=== PATIENT | female | born 1980 | race Caucasian/White ===

== ENCOUNTER 2019-09-25 08:03 | Emergency (ER) | payer SELFPAY ==
[2019-09-25 08:09] VITALS: BP 132/94; PULSE 90; TEMP 36.8; O2SAT 100
--- NOTE | 2019-09-25 08:30 | DI.RAD_ITS ---
EXAM: XR PORTABLE CHEST AP CLINICAL HISTORY: cough, lll crackles. TECHNIQUE: 2D digital imaging was performed. COMPARISON: No exams were available for comparison FINDINGS: LUNGS: Clear. No pleural abnormality seen. HEART: Normal. MEDIASTINUM: Normal. OTHER FINDINGS: None. IMPRESSION: No acute pulmonary findings. DATA REPOSITORY: RADIATION DOSE DELIVERED:
--- NOTE | 2019-09-25 08:34 | ED.GENADUL_ITS ---
Discharge Plan Disposition Patient Disposition: HOME Condition: Stable Discharge Details Chief Complaint: RespSymp Clinical Impression: Cough Primary Care Provider: None,None ED Provider: Shawn Perera Home Meds and New Rx's Prescriptions: New azithromycin 250 mg tablet See Rx Instructions .ROUTE .COMPLEX Qty: 6 RF: 0 Continued ibuprofen 600 MG tablet 600 mg PO QID PRN PRN (Reason: Pain) Qty: 30 RF: 0 Discharge Instructions Instructions: Acute Cough (ED) Additional Instructions: Azithromycin as directed. Silf-fck-hxhhoey medications such as Tylenol, Motrin, Delsym, etc. for symptomatic control. Plenty of fluids avoid dehydration. Please watch for new or worsening symptoms and return to the ER for any con cerns. Stand Alone Forms: POSITIVE COVID-19/TO BE TESTED Medical Decision Making 39-year-old female presents with a worsening productive cough over the past 2 weeks, low-grade fever, chest wall pain and shortness of breath with coughing. PERC criteria negative, will not obtain d-dimer. She appears well, nontoxic. I do not believe that hematologic laboratory values will be of use. Lungs are clear to auscultation, she is afebrile, O2 sat 100% on room air. No indication for breathing therapy. Will obtain x-ray to rule out pneumonia and obtain a COV ID swab as the tent testing is closed for the next 2 days. Chest x-ray read by me and confirmed by radiology as negative. COVID pending Discussed x-ray findings with patient. Discussed quarantining with patient. Given her symptoms are worsening, subjective fever, she is a smoker, we discussed antibiotic therapy. Will provide a Z-Nir. Patient comfortable this plan and has no additional questions or concerns. Medical Records Medical records reviewed: Yes I reviewed the patient's medical records. Imaging Data Radiologic Study: Attestation: I personally reviewed and interpreted this imaging study as follows: Imaging: X-Ray Radiologist's impression: Chest x-ray read by radiology as negative HPI General Mode of arrival: ambulatory . Date/Time Provider Initiated Documentation: 09/25/19 08:15 . Limitations to Documentation: no limitations . Information obtained by: patient . HPI Narrative: This is a 39-year-old female who reports a history of hepatitis C, currently smokes half a pack of cigarettes daily, presenting for a productive cough, low-grade cough, and chest wall pain when coughing. She reports this has been going on for approximately 2 weeks. She travels around [place] for work but has not left the state, denies any obvious sick contacts. She denies headache, neck pain, abdominal pain, nausea, vomiting, pain or swelling in her legs, history of DVT or PE. Denies any oral contraceptive. Patient reports that when she gets into a coughing fit she does feel short of breath otherwise denies shortness of breath at baseline. Related Data Home Medications Medication Instructions Recorded Confirmed ibuprofen 600 mg PO QID PRN PRN #30 tablet 01/28/14 06/19/17 azithromycin See Rx Instructions .ROUTE 09/25/19 .COMPLEX #6 tab Previous Rx's Medication Instructions Recorded ibuprofen 600 mg PO QID PRN PRN #30 tablet 01/28/14 azithromycin See Rx Instructions .ROUTE 09/25/19 .COMPLEX #6 tab Allergies Allergy/AdvReac Type Severity Reaction Status Date / Time aspirin Allergy Severe Anaphylaxsi Unverified 09/25/19 08:15 s General Stated Complaint: RespSymp MAIKEL: 3 Review of Systems Constitutional Constitutional: Denies fatigue, Denies fever(s) and Denies headache(s) Eyes Eyes: Denies eye discharge ENT Ears, Nose, Mouth, and Throat: Denies otalgia, Denies headache(s) and Denies sore throat Cardiovascular Cardiovascular: Denies chest pain and Reports dyspnea Respiratory Respiratory: Reports cough, Denies hemoptysis, Reports dyspnea and Denies wheezing Gastrointestinal Gastrointestinal: Denies abdominal pain, Denies nausea and Denies vomiting Musculoskeletal Musculoskeletal: Denies myalgias Integumentary/Breasts Skin/Breast: Denies rash Neurologic Neurologic: Denies headache(s) Endocrine Endocrine: Denies fatigue Allergic/Immunologic Allergic/Immunologic: Denies wheezing [facility] Medical History Foot pain, right s/p Fx R lateral malleolus. 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 LFTs and viral RNA pending. Tobacco use Surgical History Arthroplasty of knee L knee section (~2001) Ligation of fallopian tube Repair, ACL (~1997) Tonsillectomy and adenoidectomy Social History Smoking/Tobacco Use Status: Current every day Tobacco Type: cigarettes Alcohol Intake: never Drug use: Never Substance use type: does not use Do you feel safe at home: Yes Do you feel safe in your relationship?: Yes Exam Const General: cooperative, healthy appearing, comfortable and no acute distress Orientation: alert, awake and oriented x3 HENMT Head: normal to inspection, normocephalic and atraumatic Ears: external ears normal, TM's normal bilaterally and EAC's normal Mouth: moist mucous membranes Throat: posterior oropharynx normal Eyes Conjunctivae: conjunctivae normal Sclera: sclerae normal Neck Neck: normal visual inspection, full ROM, meningismus present, trachea midline and supple Resp Effort & Inspection: normal respiratory effort, able to speak in complete sentences and cough Quality of cough: dry Auscultation: diminished lung sounds bilaterally Cardio Rate: regular rate Rhythm: regular rhythm Skin General skin exam: no rashes or lesions noted Neuro General: patient alert, patient awake, moves all extremities and no focal motor deficits Sensory Exam: no sensory deficits noted Extrem General: normal to inspection, full ROM, capillary refill normal, no pedal edema and no calf tenderness Psych Appearance: grossly normal Mental Status: mental status grossly normal Course Vital Signs Vital signs: Vital Signs Temperature 36.8 C 09/25/19 08:09 Pulse 90 09/25/19 08:09 Blood Pressure 132/94 H 09/25/19 08:09 Pulse Oximetry 100 09/25/19 08:09 Temperature 36.8 C 09/25/19 08:09 Pulse 90 09/25/19 08:09 Respiratory Effort Non-Labored 09/25/19 08:15 Respiratory Depth Normal 09/25/19 08:15 Blood Pressure 132/94 H 09/25/19 08:09 Blood Pressure Position Sitting 09/25/19 08:09 Pulse Oximetry 100 09/25/19 08:09 Oxygen Delivery Method Room Air 09/25/19 08:09 Oxygen Flow Rate 0 09/25/19 08:09 Pain Level 9 09/25/19 08:09
[2019-09-27 04:46] LABS: SARS-CoV-2 RNA Undetected (Undetected); SARS-CoV-2 Specimen Source Nasopharynx
--- NOTE | 2019-10-02 09:52 | NUR.NOTE ---
patient called asking about covid test results. advised patient that results were negative for covid.
== END 2019-09-25 09:25 | disposition home or self-care (01) ==
PROVIDERS: Emergency Provider Physician Assistant
DX: R05 Cough (principal); R50.9 Fever, unspecified; R07.81 Pleurodynia; Z11.59 Encounter for screening for other viral diseases; F17.210 Nicotine dependence, cigarettes, uncomplicated
CPT/HCPCS: 99283; U0003; 71045

== ENCOUNTER 2021-11-10 16:26 | Outpatient (REF) | payer MEDICAID, SELFPAY ==
[2021-11-10 16:29] LABS: Lithium 0.7 mmol/l (0.6-1.2)
== END 2021-11-10 16:27 | disposition home or self-care (01) ==
LOC: NCHCN 16:26
PROVIDERS: Visit Provider Nurse Practitioner Family
DX: Z79.899 Other long term (current) drug therapy (principal); Z51.81 Encounter for therapeutic drug level monitoring
CPT/HCPCS: 80178

== ENCOUNTER 2021-12-02 15:46 | Outpatient (REF) | payer MEDICAID, SELFPAY ==
[2021-12-02 18:32] LABS: ALT 21 U/L (14-59); AST 19 U/L (15-37); Alkaline Phosphatase 98 U/L (46-116); Anion Gap 8.9 mmol/L (3-11); BUN 13 mg/dL (7-18); Bilirubin, Total 0.7 mg/dL (0.2-1.0); CO2 25.1 mmol/L (21.0-32.0); CREATININE 0.7 mg/dL (0.55-1.02); Calcium 9.5 mg/dL (8.5-10.1); Chloride 103 mmol/L (98-107); Estimated GFR 111.36 (mL/min/1.73m2); Glucose 75 mg/dL (74-106); Potassium 4.2 mmol/L (3.5-5.1); Sodium 137 mmol/L (136-145); Total Protein 7.6 g/dL (6.4-8.2)
== END 2021-12-02 15:47 | disposition home or self-care (01) ==
LOC: LBN 15:46
PROVIDERS: Visit Provider Registered Nurse
DX: Z79.899 Other long term (current) drug therapy (principal)
CPT/HCPCS: 80053; 80178

== ENCOUNTER 2021-12-10 14:15 | Outpatient (REF) | payer MEDICAID, SELFPAY ==
[2021-12-10 11:00] LABS: Lithium 0.8 mmol/l (0.6-1.2)
[2021-12-10 11:06] LABS: ALT 19 U/L (14-59); AST 17 U/L (15-37); Albumin 4.1 g/dL (3.4-5.0); Alkaline Phosphatase 89 U/L (46-116); Anion Gap 11.2 mmol/L (3-11); BUN 14 mg/dL (7-18); Bilirubin, Total 1.4 mg/dL (0.2-1.0); CO2 23.8 mmol/L (21.0-32.0); CREATININE 0.7 mg/dL (0.55-1.02); Calcium 9.9 mg/dL (8.5-10.1); Chloride 104 mmol/L (98-107); Estimated GFR 111.36 (mL/min/1.73m2); Glucose 84 mg/dL (74-106); Potassium 4.3 mmol/L (3.5-5.1); Sodium 139 mmol/L (136-145); Total Protein 7.4 g/dL (6.4-8.2)
== END 2021-12-10 14:16 | disposition home or self-care (01) ==
LOC: NCHCN 14:15
PROVIDERS: Visit Provider Nurse Practitioner Family
DX: Z79.899 Other long term (current) drug therapy (principal)
CPT/HCPCS: 80053; 80178

== ENCOUNTER 2021-12-24 12:17 | Outpatient (CLI) | payer MEDICAID, SELFPAY ==
[2021-12-24 11:47] LABS: ALT 21 U/L (14-59); AST 16 U/L (15-37); Albumin 3.9 g/dL (3.4-5.0); Alkaline Phosphatase 89 U/L (46-116); Anion Gap 9.8 mmol/L (3-11); BUN 12 mg/dL (7-18); Bilirubin, Total 1.1 mg/dL (0.2-1.0); CO2 25.2 mmol/L (21.0-32.0); CREATININE 0.8 mg/dL (0.55-1.02); Calcium 9.3 mg/dL (8.5-10.1); Chloride 106 mmol/L (98-107); Estimated GFR 94.87 (mL/min/1.73m2); Glucose 97 mg/dL (74-106); Potassium 4.1 mmol/L (3.5-5.1); Sodium 141 mmol/L (136-145); Total Protein 7.3 g/dL (6.4-8.2)
[2021-12-24 12:05] LABS: Lithium 0.8 mmol/l (0.6-1.2)
--- OUTSIDE RECORDS SUMMARY | 2021-12-24 12:23 | XMS_ITS | Encounter Summary ---
:1980 Author Organization [facility] Address [address] [place] [address] Care Team Providers Name Role Phone Roldan Crowley MD Primary Care Provider Reason for Referral Occupational Therapy (Routine) - Closed Specialty Diagnoses / Procedures Referred By Contact Refer red To Contact Diagnoses Hand crush injury, left, initial encounter Adama Mccrary MD Unknown [facility] D R [place] [address] Referral ID Status Reason Start Date Expiration Date Visits V isits Requested Authorized [id number] Closed Evaluate and 06/29/2017 12/26/2017 12 12 Treat Reason for Visit Reason Comments Advice Only ? left metacarpal fracture Encounter Details Date Type Department Care Team Description 06/29/2017 Office Visit Plastic Surgery at Adama Mccrary Hand crush injury, [facility] [place] Trina left, [facility] [address] [place] [address] [place] [address] [phone] Social History Tobacco Use Types Packs/Day Years Used Date Current Every Day Smoker Cigarettes 0.5 16 Smokeless Tobacco: Never Used Alcohol Use Standard Drinks/Week Comments Yes 0 (1 standard drink = 0.6 oz pure alcoho l) Occasional Alcohol Habits Answer Date Recorded How often do you have a drink containing alcohol? Not asked How many drinks containing alcohol do you have on a typical Not asked day when you are drinking? How often do you have six or more drinks on one occasion? 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 female who sustained an injury of the left hand. She reports she got her hand caught in the hinge mechanisms at a sign while at work. She initially ignored it but developed worsening pain so she presented to a local ED where she was imaged. She reports that in the morning the pain is minimal but immediately increases as the day goes on. She hasincreased sensitivity of the left small MCP joint. No complaints of numbness. No past medical history on file. No past surgical history on file. Social History Social History ??? Marital status: Spouse name: N/A ??? Number of children: N/A ??? Years of education: N/A Occupational History ??? Not on file. Social History Main Topics ??? Smoking status: Current Every Day Smoker Packs/day: 0.50 Years: 16.00 Types: Cigarettes ??? Smokeless tobacco: Never Used ??? Alcohol use Yes Comment: Occasional ??? Drug use: Yes Special: Marijuana Comment: Occasional ??? Sexual activity: Not on file Comment: Deferred Other Topics Concern ??? Not on file Social History Narrative Allergies Allergen Reactions ??? Asa Buff (Mag Carb-Al Glyc) [Aspirin, Buffered] Anaphylaxis ??? Aspirin Anaphylaxis Current Outpatient Prescriptions on File Prior to Visit Medication Sig Dispense Refill ??? Lidocaine HCl 3 % Cream daily as needed. 0 ??? UNABLE TO FIND 2 oz. Med Name: Medical Marijuana No current facility-administered medications on file prior to visit. Examination: No acute distress Left Upper extremity: Wrist: Full range of motion (flexion, extension, pronation/supination), no focal tenderness, No dorsal or volar synovitis, DRUJ stable, no pain over scaphoid, negative Dyer's, negative Humaira's,palpable radial and ulnar pulses Hand: Thumb CMC joint with no subluxation, negative CMC Grind, no thenar/intrinsic atrophy, tender even to very light touch around the small MP joint with limited flexion and extension due to pain but FDS/FDP intact, small decreased sensation to LT of small and ring, no nail abnormality, no skin abnorm ality, no gross deformity/masses Diagnostic Testing: XR from 06/19/17, reviewed today. No fx, no dislocation, normal alignment Impression: Brandi Alvarado is a 37 y.o. female patient with a left hand crush injury secondary to trauma. I assured the patient she does not have any fractures given her XR. I do not suspect she has any full tears of her tendons but likely has a contusion injury alongside some damage to her ligaments.Her nerves were also crushed during the injury and are likely recovering which explains some of her hypersensitivity. I emphasized the importance of first controlling pain and then working on range of motion. If she is still unable to extend the small finger 1 month out from her injury, we should investigate further. I would like to see her back in 2 weeks to assess her progress. Worker's compensation paperwork was filled out today stating she may work with her splint in place but should not be lifting more than 5 lbs. Plan: Continue ulnar gutter splint External referral for OT Follow up 2 weeks I, Sofya Howard, have performed the documentation for this encounter in the presence of and acting as a scribe for Adama Mccrary MD. I performed the services which were documented by the scribe, and I agree with the accuracy of the documentation in this encounter. Adama Mccrary MD. documented in this encounter Plan of Treatment Scheduled Referrals Name Type Priority Associated Order Schedule Diagnoses Referral to Outpatient Referral Routine Hand crush injury, Or dered: Occupational Therapy left, initial 2017 encounter documented as of this encounter Visit Diagnoses Diagnosis Hand crush injury, left, initial encount er documented in this encounter Care Teams Peanut Blancher Relationship Specialty Start Date End Date Roldan Crowley MD PCP - General 07/18/14 02/19/19 documented as of this encounter
--- OUTSIDE RECORDS SUMMARY | 2021-12-24 12:23 | XMS_ITS | Encounter Summary ---
:1980 Author Organization [facility] Address [address] [place] [address] Care Team Providers Name Role Phone Unavailable Primary Care Provider Unavailable Encounter Details Date Type Department Care Team Description 05/18/2004 Hospital Encounter [facility] Emergency, Emergency Department - [place], [address] [place] [address], [place] [id number] Social History Tobacco Use Types Packs/Day Years Used Date Never Assessed Sex Assigned at Date Recorded Not on file documented as of this encounter Discharge Disposition Disposition Code Departure Means Destination Home or Self Care documented in this encounter Plan of Treatment Not on filedocumented as of this encounter Procedures Procedure Name Priority Date/Time Associated Comments Diagnosis N. GONORRHOEAE Routine 05/18/2004 14:10 Results f or this AMPLIFIED PROBE EST procedure ar e in the results section. ZZCHLAMYDIA Routine 05/18/2004 14:10 Results for this TRACHOMATIS AMPLIFIED EST proced ure are in PROBE the results section. documented in this encounter Results N. GONORRHOEAE AMPLIFIED PROBE (05/18/2004 14:10 EST) Result No Neisseria [facility] gonorrhoeae DNA LAB detected by supervisor border department mediated amplification. Report Status Final [facility] [id number] LAB Specimen Cervix [facility] Description LAB Specimen Performing Organization Address City/State/ZIP Code Phon e Number [facility] [address] [place] [address] SERVICES [facility] [address] [place] [address] CHLAMYDIA TRACHOMATIS AMPLIFIED PROBE (05/18/2004 14:10 EST) Specimen Cervix [facility] Description LAB Result No Chlamydia [facility] trachomatis DNA LAB detected by supervisor border department mediated amplification. Report Status Final [facility] [id number] LAB Specimen Performing Organization Address City/State/ZIP Code Phon e Number [facility] [address] [place] [address] SERVICES [facility] [address] [place] [address] documented in this encounter Visit Diagnoses Not on filedocumented in this encounter
--- OUTSIDE RECORDS SUMMARY | 2021-12-24 12:23 | XMS_ITS | Encounter Summary ---
:1980 [place] [address] Care Team Providers Name Role Phone Roldan Crowley MD Primary Care Provider Encounter Details Date Type Department Care Team Description 06/09/2017 [facility] [place] [address] PLASTIC SURGERY [phone] [place], [place] [address] (Wo rk) Social History Tobacco Use Types Packs/Day Years [...] on file documented as of this encounter Medications at Time of Discharge Medication Sig Dispensed Refills Start Date End Date Lidocaine HCl 3 % Cream daily as needed. 0 2014 UNABLE TO FIND 2 oz. Med Name: Medical 0 Marijuana documented as of this encounter Plan of Treatment Not on filedocumented as of this encounter Procedures Procedure Name Priority Date/Time Associated Diagnosis Comme nts FILM LIBRARY Routine 06/09/2017 12:00 AM Results for this STORAGE ONLY DX EDT procedure ar e in HAND the results section. documented in this encounter Results Film Library- Storage Only DX Hand (06/09/2017 12:00 AM EDT) Specimen (Source) Anatomical Location Collection Method / Collectio n Time Received Time / Laterality Volume Narrative BARRY - 06/27/2017 8:13 PM EDT This exam is for storage only and is aut o-finalizing. Adama Mccrary MD IMG FILM LIBRARY ORDERABLES Performing Organization Address City/State/ZIP Code Phon e Number [place], [place] documented in this encounter Visit Diagnoses Not on filedocumented in this encounter Care Teams Mixing Supervisor Relationship Specialty Start Date End Date Roldan Crowley MD PCP - General 07/18/14 02/19/19 documented as of this encounter
--- OUTSIDE RECORDS SUMMARY | 2021-12-24 12:23 | XMS_ITS | Encounter Summary ---
:1980 Author Organization [facility] Address [address] [place] [address] Care Team Providers Name Role Phone Roldan Crowley MD Primary Care Provider Reason for Visit Reason Comments Right Ankle Pain DOI 01/28/14 Encounter Details Date Type Department Care Team Description 08/19/2014 Office Visit [facility] at [facility] Valentín Alfonso MD Neuropathy of right sural nerve; [facility] [place] of right ankle [place] [address] ORTHOPAEDIC [phone] [place], [place] [address] Social History Tobacco Use Types Packs/Day Years [...] on file documented as of this encounter Last Filed Vital Signs Vital Sign Reading Time Taken Comments Blood Pressure 114/75 08/19/2014 9:14 AM EDT Pulse 75 08/19/2014 9:14 AM EDT Temperature - - Respiratory Rate - - Oxygen Saturation - - Inhaled Oxygen Concentration - - Weight 70.3 kg (155 lb) 08/19/2014 9:14 AM EDT Height 167.6 cm (5' 6) 08/19/2014 9:14 AM EDT Body Mass Index 25.02 08/19/2014 9:14 AM EDT documented in this encounter Progress Notes Valentín Alfonso MD - 08/19/2014 9:45 AM EDT SUBJECTIVE: This is a 34-year-old woman who is seen here today regarding persistent and increasing right ankle pain status post work-related fracture, which occurred in 01/2014. 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 She is currently doing office work and has been released to work two days per week, five hours per day. In order for her to get to the office for this company, she has to drive two hours in each direction. She reports that this drive has caused an increase in her symptoms and notable swelling plantar medially in the foot. Note that she had a nondisplaced posterior malleolar fracture, which is healed. She had done well with an ASO-type ankle brace, but that apparently caused some lateral pain with sural nerve irritation, and Dr. Christensen had stopped her from using that brace. Also note that the patient sent us a number of photographs of her foot by email, which I have today for evaluation. She states her pain has increased. She is currently using Lyrica only for pain control. She is unable to tolerate aquatic therapy. OBJECTIVE: Evaluation today reveals a pleasant somewhat anxious woman in mild distress. There is no swelling of the right ankle or foot today. In fact, I looked at the photographs that she sent, and I failed to appreciate significant swelling and perhaps is just the way these pictures have been taken. There is no ecchymosis today. She is exquisitely tender to light touch medially, laterally, and anteriorly at the ankle. She has no restriction in ankle range of motion, but any passive range of motion is found painful by the patient. Her foot is warm. There does not appear to be any restriction in range of motion. She has 2+ pulses, and she has full motor function. The strength was not tested. ASSESSMENT: Hypersensitivity post fracture with increasing symptoms after a two-hour drive. PLAN: We had an extended discussion about the situation. I suggested that perhaps she would benefit from the use of a compression stocking or perhaps neoprene [id number] ankle brace to control swelling during the drive. I am not sure what Dr. Christensen will offer her today at her appointment later this morning. Based on his recommendations, I believe his continued treatment would be appropriate; however, if he feels as if he has reached an endpoint in his treatment, then I do believe this patient would benefit from enrollment in the functional anglican program. I will be seeing her back here p.r.n. documented in this encounter Plan of Treatment Not on filedocumented as of this encounter Visit Diagnoses Diagnosis Neuropathy of right sural nerve Chronic pain of right ankle documented in this encounter Care Teams Wallpaper Installer Relationship Specialty Start Date End Date Roldan Crowley MD PCP - General 07/18/14 02/19/19 documented as of this encounter
--- OUTSIDE RECORDS SUMMARY | 2021-12-24 12:23 | XMS_ITS | Encounter Summary ---
:1980 Author Organization [facility] [place] [address] Care Team Providers Name Role Phone Roldan Crowley MD Primary Care Provider Reason for Visit Reason Comments Pain Management Right Ankle Fracture Encounter Details Date Type Department Care Team Description 03/03/2015 Office Visit Pain Management at Aries Christensen ropathy of right [place] MD Liseth sural nerve [facility] [address] [place] [address] [phone] Social History Tobacco Use Types Packs/Day Years [...] Sign Reading Time Taken Comments Blood Pressure 116/90 03/03/2015 8:28 AM EST Pulse 87 03/03/2015 8:28 AM EST Temperature - - Respiratory Rate - - Oxygen Saturation 99% 03/03/2015 8:28 AM EST Inhaled Oxygen Concentration - - Weight 64.9 kg (143 lb) 03/03/2015 8:28 AM EST Height 167.6 cm (5' 6) 03/03/2015 8:28 AM EST Body Mass Index 23.08 03/03/2015 8:28 AM EST documented in this encounter Progress Notes Aries Christensen MD - 03/03/2015 8:57 AM EST Ms. Alvarado is much better. She has no swelling, discoloration, etc., on observation. She has no allodynia in the distribution of the sural nerve on the right. She does still have hyperalgesia with moderate pressure. Her mood is good. She wishes to return to work. I am returning her to work as of tomorrow, full duty. Her diagnosis is sural nerve neuropathy, improved. Her prognosis is excellent. Her date of injury was 01/28/2014. The only medication she is really using at this point in time is ibuprofen. I am happy she is doing so well. I will see her back in six months if necessary and sooner if needed. She is articulate and clearheaded, displaying a normal range of emotion. documented in this encounter Plan of Treatment Not on filedocumented as of this encounter Visit Diagnoses Diagnosis Neuropathy of right sural nerve documented in this encounter Care Teams Ship Engineer Relationship Specialty Start Date End Date Roldan Crowley MD PCP - General 07/18/14 02/19/19 documented as of this encounter
--- OUTSIDE RECORDS SUMMARY | 2021-12-24 12:23 | XMS_ITS | Encounter Summary ---
:1980 Author Organization [facility] [place] [address] Care Team Providers Name Role Phone Roldan Crowley MD Primary Care Provider Encounter Details Date Type Department Care Team Description 07/13/2017 Telephone Plastic Surgery at [facility] [place] [address] Social History Tobacco Use Types Packs/Day Years [...] on file documented as of this encounter Miscellaneous Notes Telephone Encounter - Sofya Howard - 07/13/2017 8:20 AM EDT Radiology questions documented in this encounter Plan of Treatment Not on filedocumented as of this encounter Visit Diagnoses Not on filedocumented in this encounter Care Teams Diamond Assorter Relationship Specialty Start Date End Date Roldan Crowley MD PCP - General 07/18/14 02/19/19 documented as of this encounter
--- OUTSIDE RECORDS SUMMARY | 2021-12-24 12:23 | XMS_ITS | Encounter Summary ---
:1980 Author Organization [facility] [place] [address] Care Team Providers Name Role Phone Roldan Crowley MD Primary Care Provider Encounter Details Date Type Department Care Team Description 04/29/2015 Telephone Pain Management at [facility] Santy Portillo, [place] [address] Social History Tobacco Use Types Packs/Day [...] this encounter Miscellaneous Notes Telephone Encounter - Santy Portillo LPN - 04/29/2015 10:10 AM EST Followed up with Brandi regarding her request for orthopedic shoes. Her request has also been forwarded to the last orthopedist she saw though she is no longer seeing that provider. As expected and explained to Brandi before, Dr. Christensen is not familiar at all with this process. This music writer suggested ortho or her primary which Brandi had planned to do on her own. She seems happy with the verification and needs no other assistance at this time. 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
--- OUTSIDE RECORDS SUMMARY | 2021-12-24 12:23 | XMS_ITS | Encounter Summary ---
:1980 Author Organization [facility] [place] [address] Care Team Providers Name Role Phone Kamini Lisset aFrah APRN Primary Care Provider Reason for Referral Consultation (Routine) - Closed Specialty Diagnoses / Procedures Referred By Contact Refer red To Contact Neurology Diagnoses Mononeuritis of lower limb, unspecified Aries Christensen MD [facility] Neurology [address] [place] [address] [place] [id number] [place] [address] Referral ID Status Reason Start Date Expiration Date Visits V isits Requested Authorized [id number] Closed Consult, 06/24/2014 06/24/2015 1 1 Test & Treat Encounter Details Date Type Department Care Team Description 06/24/2014 Orders Only Pain Management at Aries Christensen oneuritis of lower Stewart MD Liseth limb, unspecified [facility] [address] [place] [facility] [facility] [id number] [address] [phone] Social History Tobacco Use Types Packs/Day Years Used Date Current Every Day Smoker Cigarettes 0.5 16 Alcohol Use Standard Drinks/Week Comments Yes 0 (1 standard drink = 0.6 oz pure alcoho l) very rare Alcohol Habits Answer Date Recorded How often do you have a drink containing alcohol? Not asked How many drinks containing alcohol do you have on a typical Not asked day when you are drinking? How often do you have six or more drinks on one occasion? No t asked Comment: very rare 06/18/2014 Sex Assigned at Date Recorded Not on file documented as of this encounter Plan of Treatment Scheduled Referrals Name Type Priority Associated Diagnoses Order S chedule Referral to Outpatient Referral Routine Mononeuritis of lower Ordered: Neurology limb, unspecified 06/24/2014 documented as of this encounter Visit Diagnoses Diagnosis Mononeuritis of lower limb, unspecified documented in this encounter Care Teams Boiling Tub Operator Relationship Specialty Start Date End Date Lisset Suárez APRN PCP - General 06/13/14 07/17/14 [address] [place] [address] documented as of this encounter
--- OUTSIDE RECORDS SUMMARY | 2021-12-24 12:23 | XMS_ITS | Encounter Summary ---
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
--- OUTSIDE RECORDS SUMMARY | 2021-12-24 12:23 | XMS_ITS | Clinical Summary ---
:1980 Author Organization [facility] Address [address] [place] [address] Care Team Providers Name Role Phone None, Provider Primary Care Provider Unavailable Allergies Active Allergy Reactions Severity Noted Date Comments Aspirin Anaphylaxis High 10/10/2021 As per patient Encounters Date Type Specialty Care Team Description 10/10/2021 - Emergency Emergency Medicine Napoleon Araiza, Unspe cified mood 10/14/2021 PA-C (affective) disorder Dontae Dhillon ([facility]) (H CC) MD Lauri (Primary Dx) Petrona Chinchilla MD McBride, Kathryn C, PAJjC Akbar Becker PAJjC Lynette Thomas MD Debay, James P, PA-C Napoleon Wolf, PA-C Erika Sanchez MD Russell, Muna Figueroa PAHaley from Last 3 Months Social History Tobacco Use Types Packs/Day Years Used Date Never Assessed Sex Assigned at Date Recorded Not on file Last Filed Vital Signs Vital Sign Reading Time Taken Comments Blood Pressure 136/106 10/14/2021 0700 EDT Pulse 80 10/14/2021 0700 EDT Temperature 36.7 ??C (98 ??F) 10/14/2021 0700 EDT Respiratory Rate 16 10/14/2021 0700 EDT Oxygen Saturation 97% 10/14/2021 0700 EDT Inhaled Oxygen Concentration - - Weight - - Height - - Body Mass Index - - Plan of Treatment Health Maintenance Due Date Last Done Comments COVID-19 Vaccine (#1) 1980 Hepatitis C Screen Completed 05/13/2010 Procedures Procedure Name Priority Date/Time Associated Comments Diagnosis ECG REPORT - SCANNED 10/12/2021 13:27 EDT ECG REPORT - SCANNED 10/12/2021 13:27 EDT [facility] 10/12/2021 12:04 LAB PCR EDT COVID-19 TESTING Routine 10/12/2021 12:04 Results for this EDT procedure are i n the results section. COMPLETE BLOOD COUNT STAT 10/12/2021 10:37 Res ults for this AND DIFFERENTIAL EDT procedure a re in the results section. ETHANOL, BLOOD STAT 10/12/2021 10:36 Results f or this EDT procedure are i n the results section. SALICYLATE STAT 10/12/2021 10:36 Results for this EDT procedure are i n the results section. ACETAMINOPHEN STAT 10/12/2021 10:36 Results fo r this EDT procedure are i n the results section. QUANT BETA HCG, STAT 10/12/2021 10:36 Results for this EDT procedure are i n the results section. COMPREHENSIVE STAT 10/12/2021 10:36 Results fo r this METABOLIC PANEL (CMP) EDT proced ure are in the results section. EKG 12-LEAD STAT 10/12/2021 10:17 Results for this EDT procedure are i n the results section. DRUG SCREEN 11, URINE STAT 10/11/2021 12:00 Re sults for this EDT procedure are i n the results section. from Last 3 Months Results ECG REPORT - SCANNED (10/12/2021 13:27 EDT) Specimen Narrative This result has an attachment that is no t available. ECG REPORT - SCANNED (10/12/2021 13:27 EDT) Specimen Narrative This result has an attachment that is no t available. COVID-19 TEST [facility] PCR (10/12/2021 12:04 EDT) Specimen Swab - Anterior nares Performing Organization Address City/State/ZIP Code Phon e Number [facility] [address] [place] [address] SERVICES COVID-19 TESTING (10/12/2021 12:04 EDT) COVID-19 rt-PCR Negative Negative [facility] MED[facility] Result Comment: CENTER LABORATORY This test has not been FDA c leared or approved. This test has been authorized by FDA under an EUA for use by authorized laboratories. This test has been authorized only for detection of nucleic acid fro SERVICES m 2019-nCoV, not for any oth er viruses or pathogens. This test is only authorized for the duration of the declaration that circumstances exist justifying the authorization of emergency use of in vitro d iagnostic tests for detectio n and/or diagnosis of 2019-nCoV under section 564(b)(1) of Act, 21 U.S.C ?? 360bbb-3(b) (1), unless the authorization is terminated or revoked sooner. Negative results do not prec lude 2019-nCoV infection and should not be used as the sole basis for treatment or other patient management decisions. Negative results must be combined with clinical observa tions, patient history, and epidemiological informatio n. Performed on the Sovex Fusion instrument Performing Lab [place] [facility] Lab [facility] SERVICES Specimen Swab - Anterior nares Performing Organization Address City/State/ZIP Code Phon e Number [facility] [address] [place] [address] SERVICES (ABNORMAL) COMPLETE BLOOD COUNT AND DIFFERENTIAL (10/12/2021 10:37 EDT) WBC 6.72 4.00 - 12.40 [facility] LABORATORY SERVICES RBC 4.61 3.86 - 5.04 [facility] LABORATORY SERVICES Hemoglobin 14.5 11.6 - 15.2 [facility] gm/dL LABORATORY SERVICES HCT 44.5 (H) 34.9 - 44.4 % [facility] SERVICES MCV 97 81 - 98 fl [facility] SERVICES MCH 31.5 26.7 - 33.3 pg [facility] SERVICES MCHC 32.6 32.1 - 35.9 [facility] gm/dL LABORATORY SERVICES RDW-CV 11.7 <14.7 % [facility] SERVICES RDW-SD 41.1 <50.4 fl [facility] SERVICES PLT 392 (H) 141 - 377 K/[facility] LABORATORY SERVICES MPV 9.4 (L) 9.5 - 12.7 fl [facility] SERVICES Neutrophils 59.4 % [facility] SERVICES Lymphocytes 31.4 % [facility] SERVICES Monocytes 5.7 % [facility] SERVICES Eosinophils 2.8 % [facility] SERVICES Basophils 0.4 % [facility] SERVICES Immature Grans 0.3 % [facility] SERVICES Absolute Neutrophils 3.99 2.20 - 8.85 [facility] LABORATORY SERVICES Absolute Lymphocytes 2.11 1.09 - 3.30 [facility] LABORATORY SERVICES Absolute Monocytes 0.38 0.10 - 0.80 [facility] LABORATORY SERVICES Absolute Eosinophils 0.19 0.03 - 0.61 [facility] LABORATORY SERVICES Absolute Basophils 0.03 0.01 - 0.11 [facility] LABORATORY SERVICES Absolute Immature 0.02 0.00 - 0.06 [facility] LABORATORY SERVICES Type of Differential: Auto [facility] SERVICES Specimen Blood - Venous blood (substance) Performing Organization Address [facility] Phon e Number [facility] [address] [place] [address] SERVICES QUANT BETA HCG, (10/12/2021 10:36 EDT) Beta HCG Quant, <5 <5 mIU/mL [facility] Comment: LABORATORY NOTE: SERVICES : Negative: Less than 5mIU/mL Indeterminant: Between 5 and 25 mIU/mL, recommend repe at testing in 48 hours Positive: Greater than 25 mIU/mL The results of this assay ca n be falsely lowered due to the consumption of Biotin. Specimen Blood - Venous blood (substance) Performing Organization Address [facility] Phon e Number [facility] [address] [place] [phone] SERVICES ETHANOL, BLOOD (10/12/2021 10:36 EDT) Ethanol, Blood <10Comment: Healthy, <10 mg/dL [facility] non-drinking mg/dL LABORATORY individuals will have SERVICES an ethanol concentration of <10 mg/dL. Specimen Blood - Venous blood (substance) Performing Organization Address [facility]/ZIP [facility] Phon e Number [facility] [address] [place] [address] SERVICES ACETAMINOPHEN (10/12/2021 10:36 EDT) Acetaminophen <10 See Note [facility] Comment: ??g/mL LABORATORY SERVICES NOTE: Therapeutic: ??10 - 30 ug/mL Possible Toxicity: ??150 - 200 ug/mL Probable Toxicity: ??>200 ug/mL Specimen Blood - Venous blood (substance) Performing Organization Address [facility] Phon e Number [facility] [address] [place] [address] SERVICES SALICYLATE (10/12/2021 10:36 EDT) Salicylate <1.0 See Note mg/dL [facility] Comment: LABORATORY SERVICES Reference Ranges: Negative: ??<2.0 mg/dL Therapeutic: ??<20.0 mg/dL Toxic: ??>30.0 mg/dL Specimen Blood - Venous blood (substance) Performing Organization Address [facility] Phon e Number [facility] [address] [place] [address] SERVICES (ABNORMAL) COMPREHENSIVE METABOLIC PANEL (CMP) (10/12/2021 10:36 EDT) Pathologist Sig nature Sodium 146 (H) 136 - 145 [facility] mmol/L LABORATORY SERVICES Potassium 3.6 3.5 - 5.0 [facility] mmol/L LABORATORY SERVICES Chloride 101 96 - 110 mmol/L [facility] SERVICES CO2 Total 27 22 - 32 mmol/L [facility] SERVICES Glucose 62 (L) 70 - 100 mg/dL [facility] SERVICES BUN 19 10 - 26 mg/dL [facility] SERVICES Creatinine 0.72 0.52 - 1.04 [facility] mg/dL LABORATORY SERVICES eGFR 108 >60 [facility] mL/min/1.73m2 LABORATORY SERVICES Total Protein 7.5 6.3 - 8.2 g/dL [facility] SERVICES Albumin 4.7 3.4 - 4.9 g/dL [facility] SERVICES Alkaline Phosphatase 97 38 - 126 U/L [facility] SERVICES AST 50 (H) 15 - 46 U/L [facility] SERVICES ALT 31 <35 U/L [facility] SERVICES Bilirubin, Total 0.8 <1.4 mg/dL [facility] SERVICES Calcium 9.5 8.5 - 10.5 [facility] mg/dL LABORATORY SERVICES Albumin/Globulin 1.7 1.0 - 2.5 [facility] Ratio LABORATORY SERVICES Anion Gap 18 (H) 5 - 14 [facility]ORATORY SERVICES Specimen Blood - Venous blood (substance) Performing Organization Address City/State/ZIP Code Phon e Number [facility] [address] [place] [address] SERVICES EKG 12-LEAD (10/12/2021 10:17 EDT) Specimen Narrative [facility] EKG - 10/12/2021 13:2 1 EDT ?[facility] Emergency ? Test Date: ?2021-10-12 Pat Name: ? THOMAS ALVARADO ? Department: ?? ED ? Room: ? GT30 Gender: ? Female ? Cotton Header: ?? [id number] : ?1980 ? Requested By: DAVINA Ruiz Order Number: [id number] ? Sulma LYNN: ?? OZZIE FOX MD ? Measurements Intervals ?[place] ? Rate: ? 68 ? P: ?51 CA: ? 145 ?QRS: ?39 QRSD: ? 81 ? T: ?50 QT: ? 422 ? QTc: ?450 ? Interpretive Statements SINUS RHYTHM WITH SINUS ARRHYTHMIA Otherwise Within Normal Limits No previous ECG available for comparison I reviewed the tracing and have either a greed or edited the findings in this report. Electronically Signed On 10-13-19 13:21:16 EDT by OZZIE FOX MD. Procedure Note Ozzie Fox MD - 10/12/[address] [facility] Emergency Test Date: 2021-10-12 Pat Name: THOMAS ALVARADO Department: ED Room: 30 Gender: Female Cotton Header: [id number] : 1980 Requested By: DAVINA Ruiz Order Number: [id number] Reading MD: AROLDO FOX MD Measurements Intervals [place] Rate: 68 P: 51 CA: 145 QRS: 39 QRSD: 81 T: 50 QT: 422 QTc: 450 Interpretive Statements SINUS RHYTHM WITH SINUS ARRHYTHMIA Otherwise Within Normal Limits No previous ECG available for comparison I reviewed the tracing and have either a greed or edited the findings in this report. Electronically Signed On 10-13-19 13:21:16 EDT by OZZIE FOX MD. Performing Organization Address City/State/ZIP Code Phon e Number [facility] EKG (ABNORMAL) DRUG SCREEN 11, URINE (10/11/2021 12:00 EDT) [facility] Signature Amphetamine Screen, Negative Screen Negative, [facility] Ur Comment: Negative CENTER Confirmation testing available upon request. Screen LABORATORY Suitable for medical purposes only. SERVI ROSY Will not detect all drugs within class. Cutoff = 500 ng/mL Barbiturates Screen, Negative Screen Negative, [facility] Ur Comment: Negative CENTER Confirmation testing available upon request. Screen LABORATORY Suitable for medical purposes only. SERVI ROSY Will not detect all drugs within class. Cutoff = 200 ng/mL Benzodiazepine Negative Screen Negative, [facility] Screen, Ur Comment: Negative CENTER Confirmation testing available upon request. Screen LABORATORY Suitable for medical purposes only. SERVI ROSY Will not detect all drugs within class. Cutoff = 150 ng/mL Buprenorphine and Negative Screen Negative, [facility] Metabolites Screen, Comment: Negative CENTER Ur Confirmation testing available upon request. Screen LABORATORY Suitable for medical purposes only. SERVI ROSY Will not detect all drugs within class. Cutoff = 10 ng/mL Cannabinoids Screen, Presumptive Positive, interpret with ca mooon. (A) Negative, [facility] Ur Comment: Negative CENTER Confirmation testing available upon request. Screen LABORATORY Suitable for medical purposes only. SERVI ROSY Will not detect all drugs within class. Cutoff = 50 ng/mL Cocaine Metabolites Presumptive Positive, interpret with caution . (A) Negative, [facility] Screen, Ur Comment: Negative CENTER Confirmation testing available upon request. Screen LABORATORY Suitable for medical purposes only. SERVI ROSY Will not detect all drugs within class. Cutoff = 150 ng/mL Methadone Screen, Ur Negative Screen Negative, [facility] Comment: Negative CENTER Confirmation testing available upon request. Screen LABORATORY Suitable for medical purposes only. SERVI ROSY Will not detect all drugs within class. Cutoff = 200 ng/mL Methamphetamine Negative Screen Negative, [facility] Screen, Ur Comment: Negative CENTER Confirmation testing available upon request. Screen LABORATORY Suitable for medical purposes only. SERVI ROSY Will not detect all drugs within class. Cutoff = 500 ng/mL Opiates Screen, Ur Negative Screen Negative, [facility] Comment: Negative CENTER Confirmation testing available upon request. Screen LABORATORY Suitable for medical purposes only. SERVI ROSY Will not detect all drugs within class. Cutoff = 100 ng/mL Oxycodone Screen, Ur Negative Screen Negative, [facility] Comment: Negative CENTER Confirmation testing available upon request. Screen LABORATORY Suitable for medical purposes only. SERVI ROSY Will not detect all drugs within class. Cutoff = 100 ng/mL Propoxyphene Screen, Negative Screen Negative, [facility] MED[facility] Ur Comment: Negative CENTER Confirmation testing available upon request. Screen LABORATORY Suitable for medical purposes only. SERVI ROSY Will not detect all drugs within class. Cutoff = 300 ng/mL Specimen Urine - Urine specimen collection, clean catch (procedure) Performing Organization Address City/State/ZIP Code Phon e Number [facility] [address] [place] [address] SERVICES from Last 3 Months Insurance Payer Benefit Plan / Subscriber ID Effective Phone Address T ype Group Dates [place] [id number] 2021-Pres [address] Medicaid [place] [facility] [id number] Thomas Alvarado Personal/Family Self 1980 [address] (Home) [place] [address] Thomas Alvarado Personal/Family Self 1980 [address]Home) [place] [address] Care Teams Dental Technologist Relationship Specialty Start Date End Date None, Provider PCP - General 10/12/21
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
--- OUTSIDE RECORDS SUMMARY | 2021-12-24 12:23 | XMS_ITS | Encounter Summary ---
:1980 Author Organization [place] [address] Care Team Providers Name Role Phone Roldan Crowley MD Primary Care Provider Reason for Visit Reason Comments Pain Management Encounter Details Date Type Department Care Team Description 12/30/2014 Office Visit Pain Management at [facility] Tania Childers MD sural nerve [facility] [address] [place] [facility] [id number] [place] [id number] [phone] Social History Tobacco Use Types Packs/Day Years [...] Sign Reading Time Taken Comments Blood Pressure 120/55 12/30/2014 9:48 AM EST Pulse 76 12/30/2014 9:48 AM EST Temperature - - Respiratory Rate - - Oxygen Saturation 100% 12/30/2014 9:48 AM EST Inhaled Oxygen Concentration - - Weight 70.3 kg (155 lb) 12/30/2014 9:48 AM EST Height 167.6 cm (5' 6) 12/30/2014 9:48 AM EST Body Mass Index 25.02 12/30/2014 9:48 AM EST documented in this encounter Progress Notes Aries Christensen MD - 12/30/2014 10:47 AM EST I am seeing Ms. Alvarado in followup for her right ankle sural neuropathy workers' compensation injury. Her injury occurred on 01/28/2014 when a cable snapped into the lateral aspect of her right ankle resulting in a fracture as well as a sural nerve injury. She has had persistent neuropathic pain than in the right ankle since then which has limited her ability to return to her previous occupation. On physical examination, she has allodynia in the distribution of the sural nerve, but really no place else. She can heel stand and toe stand without difficulty, but she does have [id number] pain almost constantly in the distribution of that nerve. She is using Lidoderm patches and medical marijuana with some relief. She is working 20 hours a week from home and as a result of today's visit I am increasing her work hours to 40 hours a week and she can drive one hour each way to and from her job. She cannot stand for more than an hour. 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 I have also been asked to review the independent medical evaluation report done by Dr. Gallito Draper on 11/12/2014 and I have carefully reviewed this note. He rightfully notes that my diagnosis is a sural neuropathy. She does not have complex regional pain syndrome and it is still my opinion that her pain is likely to recede and hopefully be very minimal [address] Draper states on page seven that there are non-physiological findings and he describes these as superficial touch resulting in non-physiologic pain complaints and I entirely disagree with this assessment. It is clear that there is a sensory deficit known as allodynia which is a painful response to a nonpainful stimulus which is exactly what Ms. Alvarado has and this is in the distribution of the sural nerve by my examination today and by my previous examinations. Dr. Draper states on page eight that her pain drawing reveals findings suggestive of symptom magnification and I would entirely disagree with that as well, in fact she completed her pain drawing for Mr. Anderson Phillips at another visit and it was his opinion as it is mine that the drawings are consistent with her reported injury. Dr. Draper states that his evaluation of the Johanna Pain Questionnaire showing a 2.1 average of somatic descriptors and a 2.5 average of effective descriptors indicates predominantly exaggerated pain and I disagree with that as well. Evaluation of the Johanna short form is very subjective and never actually been proven to be reliable to the best of my knowledge but even a subjective impartial evaluation would reveal that 2.1 and 2.5 are very close and I do not think that 0.4 difference is clinically relevant. On page 10, Dr. Draper states that his diagnosis is chronic pain psychogenic. It is impossible for me to understand how he could make such a complex diagnosis without any evidence at all. He states on page 10 again in his discussion that the primary diagnosis appears to be psychogenic chronic pain for unknown reasons and he has that the examinee may have significant underlying depression and/or undiagnosed personality disorder, another possibility is bipolar disorder. It is my opinion that this paragraph and these sentences are completely unhelpful, really tell us nothing except that it is possible that Ms. Alvarado could have virtually any psychological or psychiatric diagnosis and I do not believe that Dr. Draper is qualified to make those diagnosis. Under causation on page 10, I completely disagree as well. In my opinion to a reasonable degree of medical certainty, Ms. Alvarado's current right leg complaints are entirely a consequence of her injury which occurred on 01/28/2014. I do not believe and again I disagree with Dr. Draper that Ms. Alvarado has reached maximum medical improvement. Dr. Draper states that her psychological issues have not been addressed and have clearly not resolved. She has been seeing Anderson Phillips who is a psychologist and Mr. Phillips has noted nothing similar to what Dr. Draper has noted. Mr. Phillips had Ms. Alvarado complete a number of tests and notes that her psychiatric history is negative for depression, pb, etc. She also completed a DSM-5 Level 1 symptom measure which showed no evidence of any of the major disorders that Dr. Draper describes but did show the evidence of symptoms related to irritability, anxiety, and sleep disturbance. Again, I note that in this note dated 09/22/2014 Ms. Alvarado's pain drawing is relatively unremarkable and does not indicate pain exaggeration according to Mr. Phillips. It is my opinion that Ms. Alvarado suffers from a sural neuropathy directly related to her injury which occurred on 01/28/2014. It appears that she is improving and I would predict and hope that she will continue to improve. I will see her back in four months. I can see her sooner if necessary. Again, I have increased her work capacity as described in the earlier part of this note. We spent one hour together today, 35 minutes of which was spent with my explaining my opinion and etc. documented in this encounter Plan of Treatment Not on filedocumented as of this encounter Visit Diagnoses Diagnosis Neuropathy of right sural nerve documented in this encounter Care Teams Commissions Analyst Relationship Specialty Start Date End Date Roldan Crowley MD PCP - General 07/18/14 02/19/19 documented as of this encounter
--- OUTSIDE RECORDS SUMMARY | 2021-12-24 12:23 | XMS_ITS | Encounter Summary ---
:1980 Author Organization [facility] Address [address] [facility] [place] [address] Care Team Providers Name Role Phone Lisset Suárez APRN Primary Care Provider Reason for Visit Reason Comments Ankle Pain right Encounter Details Date Type Department Care Team Description 07/10/2014 Office Visit Functional [facility] Yamileth Chan, OT [facility] Neuropathy of right sural nerve; Program at [facility] Lisset Suárez, PLANT ELECTRICAL ENGINEER [address] [place], [place] [id number] Chronic ankle pain, right [address] [place] Roldan Callaway MD [address] [place] [address] [address] [place], [place] [id number] [place] [address] Social History Tobacco Use Types Packs/Day Years [...] Sign Reading Time Taken Comments Blood Pressure 129/102 07/10/2014 3:03 PM EDT Pulse 56 07/10/2014 3:03 PM EDT Temperature - - Respiratory Rate - - Oxygen Saturation - - Inhaled Oxygen Concentration - - Weight - - Height - - Body Mass Index - - documented in this encounter Progress Notes Thuy Chan, OT - 07/10/2014 2:34 PM EDT Work Readiness Assessment Referring Provider: SARITHA CHRISTENSEN MD Primary Care Provider: LISSET SUÁREZ APRN Reason for Referral: Ms. Alvarado was referred to the [facility] for assistance in determining her current work capacity. Brief Medical History: Ms. Alvarado injured her right ankle while at work on 01/28/14. Treatment to date has included medications, air cast/bracing, physical therapy, pool therapy. Currently attending physical therapy 2x/week. Reports her newly prescribed Lyrica and adjustments to the timing of doses seem to be helpful, though she still often feels drowsy and/or foggy, especially between 1 and 3 pm. Medical history is also significant for lumbar herniated disc with chronic low back pain and right sciatica, left knee ACL repair. She is scheduled for an EMG on 07/15/14, a follow up with Dr. Alfonso in Orthopedics on 08/19/14, and a follow up with Dr. Christensen in the Pain Clinic on 09/02/14. Pain: Ms. Alvarado reports right ankle pain that radiates up along the lateral aspect of her right calf,along with swelling and hypersensitivity. Also reports, with limping the last several months, her sciatic symptoms are aggravated. Symptoms worsen with gravity, any weight bearing on her right foot, p articularly through her heel, transitional movements and positions such as from sitting to standing.Symptoms ease with icing, unweighting her right foot. Work History: Employer: [employer]. 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 Alvarado has been working in her current position in the company for 3 years. Work Status: Ms. Alvarado has been out of work since 05/29/13. 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 Job Demands: This is a medium physical demand level job requiring lifting up to 25-50 lbs. on an occasional basis by her description. A current job description and task analysis was not provided by theemployer. Reports she typically works 50-60 hours in the summer season, 6 days/week. 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 Identified At Risk Job Demands: 1. Standing/walking 10-14 hours per day in the summer 2. 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 Lifting 4. Directing traffic, moving quickly 5. Dragging barriers and barrels in which asia has collected AROM: Within normal limits, both upper extremities, neck and trunk. Left ankle range of motion within normal limits; right ankle range of motion restricted in all planes due to pain. Note: with physical testing, Ms. Alvarado kept weight off her right foot whenever possible relying her left leg and her single point cane, and was unable to tolerate bearing weight through her right heel at any point during physical capacity testing. Ms. Alvarado is able to perform a half range squat, bearing weight through her left leg primarily and leaning on her cane with one hand Gait: Gait is antalgic; she does not bear weight through her right heel but instead walks on the ball of her foot. She is unable to heel and toe walk. She uses a single point cane at all times and was unable tolerate taking more than 3 steps forward without use of the cane. Upper Body Tasks Country Printer Strength (lbs): Right Left 53 [phone] 55 Comments: To attain the tolerances for veteran appeals reviewer strength, a dynamometer in the second position was used.Ms. Alvarado is right-hand dominant. When compared to well- established normative data, Ms. Alvarado's bilateral veteran appeals reviewer strength is significantly below average for females her age (by approx 25-30 lbs). Cardiovascular Endurance Ms. Alvarado completed a multistage, submaximal treadmill protocol by walking for 0:02 minutes at a speed of 1.0 mph on a 0% grade. This is equivalent to 0 METs with a heart rate of 76 bpm. Reason for stop point: right ankle pain Non Material Handling Tasks Bend Within functional limits Kneel Demonstrated 1 repetition during material handling. Reports she is able to sustain a kneeling position for several minutes without difficulty as long as she does not lean back and put weight through the balls of her feet. Requires use hand on furniture to push back up to a standing position Squat Able to perform a half range squat with one hand on cane for support and bearing most of her weight through her left leg. Reports she is unable to sustain a squatting position Climb Ms. Alvarado reports she is able to ascend and descend one flight of stairs at home to her apartment one step at a time, leading with the right and following with the left, withcareful foot placement, with use of both the handrail and cane for support. Observed taking one step in this fashion duringmaterial handling Stand Ms. Alvarado reports 5-10 minutes maximally, with use of the cane to lean on Walk Ms. Alvarado reports 3-5 minutes maximally, with use of the cane. Only tolerated taking 3 steps forward without use of cane. Sit Ms. Alvarado reports 60 minutes Reach No observed or reported functional limitations Drive Ms. Alvarado reports no functional limitations using only the ball of her foot Do Fine Motor No observed or reported functional limitations Comments: To attain the above non material handling tolerances Ms. Alvarado was observed during tasks requiring these postures and by self report. Materials Handling Tasks 1-time Maximum Occasional Carry, 25 feet Unable* 0 lbs. 12 to Waist Lift 30 lbs. 21 lbs. Waist to Shoulder Lift 25 lbs. 18 lbs. Shoulder to Overhead Lift n/a Push 21 lbs. 15 lbs. Pull unable 0 lbs. *able to carry 5 lbs in one hand while using the cane a distance of approx 15 feet, limited by pain.Not able to carry the crate for any distance if using both hands on the crate and no cane. a distance of 25 feet; required 2 brief standing rest breaks to take weight of right lower extremity Comments: To attain the material handling tolerances Ms. Alvarado carried, lifted, pushed and pulled a succession of weights. She demonstrated poor body mechanics. She does not bear weight fully on the right leg and keeps heel elevated at all times Approximate frequency of lifts or movements are defined by the [place] Department of Labor Employment and Training and Administration. Occasional- Up to 33% of the workday; up to 1 repetition per 30 minutes. 1-time maximum- maximum ability demonstrated in a testing situation Sedentary work defined by the [place] Department of Employment and Training Administration requires lifting no more than 10 lbs. on an occasional basis, with possible lifting of small objects weighing less than 10 lbs. Typical energy requirement -1.5 METS Sedentary-Light work defined by the [place] Department of Employment and Training Administration requires lifting no more than 15 lbs. on an occasional basis or up to 10 lbs. on a more frequent basis. Typical energy requirement -2.0 METS Light work as defined by the [place]. Department of Employment and Training Administration requires lifting no more than 20 lbs. on an occasional basis or up to 10 lbs. on a more frequent basis. Typical energy requirement -2.5 METS Light-Medium work as defined by the [place]. Department of Employment and Training Administration requires lifting no more than 35 lbs. on an occasional basis or up to 20 lbs. on a more frequent basis. Typical energy requirement -3.0 METS Medium work as defined by the [place]. Department of Employment and Training Administration requires lifting up to a maximum of 50 lbs. on an occasional basis or up to 25 lbs. on a more frequent basis. Typical energy requirement -3.5 METS Medium-Heavy work as defined by the [place]. Department of Employment and Training Administration requires lifting up to a maximum of 75 lbs. on an occasional basis or up to 35 lbs. on a more frequent basis. Typical energy requirement -4.5 METS Heavy work as defined by the [place]. Department of Employment and Training Administration requires lifting up to a maximum of 100 lbs. on an occasional basis or up to 50 lbs. on a more frequent basis. Typical energy requirement -6.0 METS Very Heavy work as defined by the [place]. Department of Employment and Training Administration requireslifting over 100 lbs. on an occasional basis or up to 50 lbs. on a more frequent basis. Typical energy requirement - 7.5 to 12 METS Assessment: The above findings were based on an assessment of cardiovascular endurance, physical function, statements made during the evaluation and observations made by the blow pit helper. This evaluation suggests Ms. Alvarado is currently functioning at the sedentary physical demand level when considering her cardiovascular endurance and ability to lift. She is limited by pain in any and all activities thatrequire weight bearing through her right lower extremity. Gilman activity limiting factors are poor stamina and overall activity tolerances, poor walking endurance and gait mechanics, limited positional tolerances (particularly standing), limited functional strength. In summary, this means Ms. Alvarado is not currently able to return to her previous life style which included full work at the medium physicaldemand level. She will likely benefit from continued pool therapy to build her activity tolerance, and transition to desensitization therapy, gait training, and active work conditioning. Recommendations: - see work site accommodations for Ms. Alvarado noted in the chart below. - Continue pool therapy for several more weeks to build her overall activity tolerance, then transition to desensitization therapy, gait training, and active work conditioning. - Follow up in Orthopedics in July and Pain Medicine in August as planned. - If Ms. Alvarado is still struggling with work tolerance after 1-2 more months of therapy and updated physical capacity testing is warranted, consider a full Functional Capacity Evaluation through rehab medicine to include reliability and validity testing, work task simulation, and longer duration physical capacity testing. Consider also a referral to Occupational Medicine if she does not already have atreating [facility] provider. EMPLOYEE WORK CAPABILITY Employee can No Restrictions Frequently Occasionally Unable to Employee can lift maximally 20 lbs. Employee can lift/carry frequently 15 lbs. Not able to carry weight. Bend x Kneel x Squat x Climb At own pace with handrail and cane Stand No more than 5-10 mins at a time with opportunity to lean on cane Walk No more than 3-5 mins at a time, at own pace, with use of single point cane Sit opportunity to change positions after [address] x Do Fine Motor x This report provides guidance to the occupational health team in assessing Ms. Alvarado's work capacity. The result of this testing must be integrated with clinical findings and other observations to derive a final assessment of work capacity. In addition, this report is not intended for use as part of an application for Social Security Disability Insurance. For this purpose a referral to Occupational Medicine is required. 55 minutes were spent interviewing and assessing Ms. Alvarado. documented in this encounter Plan of Treatment Not on filedocumented as of this encounter Visit Diagnoses Diagnosis Neuropathy of right sural nerve Chronic ankle pain, right documented in this encounter Care Teams Compound Mixer Relationship Specialty Start Date End Date Lisset Suárez APRN PCP - General 06/13/14 07/17/14 [address] [place] [address] documented as of this encounter
--- OUTSIDE RECORDS SUMMARY | 2021-12-24 12:23 | XMS_ITS | Encounter Summary ---
:1980 Author Organization [facility] Address [address] [place] [address] Care Team Providers Name Role Phone Unavailable Primary Care Provider Unavailable Encounter Details Date Type Department Care Team Description 08/25/2000 Hospital Encounter [facility] Emergency, Emergency Department - [place], Main [place] [address] [place] [address] Social History Tobacco Use Types Packs/Day Years Used Date Never Assessed Sex Assigned at Date Recorded Not on file documented as of this encounter Discharge Disposition Disposition Code Departure Means Destination Home or Self Care documented in this encounter Plan of Treatment Not on filedocumented as of this encounter Procedures Procedure Name Priority Date/Time Associated Comments Diagnosis CREATININE Routine 08/25/2000 16:49 Results for this EDT procedure are i n the results section. HEMAGRAM & DIFF Routine 08/25/2000 16:49 Results for this EDT procedure are i n the results section. BUN Routine 08/25/2000 16:49 Results for this EDT procedure are i n the results section. GLUCOSE, SERUM Routine 08/25/2000 16:49 Results f or this EDT procedure are i n the results section. ELECTROLYTES Routine 08/25/2000 16:49 Results for this EDT procedure are i n the results section. ZZBLOOD GAS, G3 ISTAT Routine 08/25/2000 15:56 Re sults for this EDT procedure are i n the results section. documented in this encounter Results GLUCOSE, SERUM (08/25/2000 16:49 EDT) Glucose, Serum 82 70 - 110 mg/dl [facility] Comment: Results may be affected due to hemolysis. Slight hemolysis Specimen Performing Organization Address City/State/ZIP Code Phon e Number [facility] [address] [place] [address] SERVICES [facility] [address] [place] [address] (ABNORMAL) ELECTROLYTES (08/25/2000 16:49 EDT) Pathologist Sig [facility] Sodium 141Comment: Slight 136 - 145 mEq/L [facility] hemolysis Potassium 4.3 3.5 - 5.0 mEq/L [facility] Comment: Hemolysis may elevate potassium result. Slight hemolysis Chloride 106Comment: Slight 96 - 110 mEq/L [facility] hemolysis CO2 21 (L)Comment: 24 - 30 mEq/L [facility] Slight hemolysis Specimen Performing Organization Address [facility] Code Phon e Number [facility] [address] [place] [address] SERVICES [facility] [address] [place] [address] CREATININE (08/25/2000 16:49 EDT) Pathologist Sig [facility] Creatinine 0.7Comment: Slight 0.7 - 1.5 mg/dl [facility] hemolysis Specimen Performing Organization Address City/[facility]/ZIP Code Phon e Number [facility] [address] [place] [address] SERVICES [facility] [address] [place] [address] HEMAGRAM & DIFF (08/25/2000 16:49 EDT) Pathologist Sig [facility] WBC 10.43 4.0 - 12.4 K/cmm [facility] RBC 4.04 3.86 - 5.04 M/cmm [facility] Hemoglobin 12.9 11.6 - 15.2 gm/dl [facility] HCT 38.6 34.9 - 44.4 % [facility] MCV 95 81 - 98 fl [facility] MCH 31.9 26.7 - 33.3 pg [facility] MCHC 33.4 32.1 - 35.9 gm/dl [facility] PLT 207 141 - 320 K/cmm [facility] RDW-CV 12.1 11.7 - 14.6 % [facility] Neutrophils 64.2 45.5 - 79.7 % [facility] Lymphocytes 30.0 15.0 - 46.8 % [facility] Monocytes 4.3 1.8 - 12.0 % [facility] Eosinophils 1.1 0.6 - 6.9 % [facility] Basophils 0.4 0.2 - 1.4 % [facility] ABS Neutrophils 6.70 2.20 - 8.85 K/cmm [facility] ABS Lymphs 3.13 1.09 - 3.30 K/cmm [facility] ABS Monocytes 0.45 0.1 - 0.8 K/cmm [facility] ABS Eosinophils 0.11 0.03 - 0.61 K/cmm [facility] ABS Basophils 0.04 0.01 - 0.11 K/cmm [facility] Type of Diff: Automated [facility] Specimen Performing Organization Address City/[facility]/ZIP Code Phon e Number [facility] [address] [place] [address] SERVICES [facility] [address] [place] [address] BUN (08/25/2000 16:49 EDT) Pathologist Sig nature BUN 15 10 - 26 mg/dl [facility] Comment: Results may be affected due to hemolysis. Slight hemolysis Specimen Performing Organization Address [facility]/ZIP Code Phon e Number [facility] [address] [place] [address] SERVICES [facility] [address] [place] [address] (ABNORMAL) BLOOD GAS, G3 ISTAT (08/25/2000 15:56 EDT) pH, i-STAT 7.40 7.35 - 7.45 [facility] pCO2, i-STAT 35 35 - 45 mmHg [facility] pO2, i-STAT 140 (H) 85 - 100 mmHg [facility] TCO2, i-STAT 22 mEq/L [facility] O2 Saturation 99 % [facility] Temperature Body Temp not noted; C [facility] 37 degrees assumed. FIO2 NOT GIVEN [facility] Sample Type Arterial [facility] [facility] body mechanic [place] [id number] [facility] Test Performed by Respiratory Specimen Performing Organization Address City/[facility]/ZIP Code Phon e Number [facility] [address] [place] [address] [facility] [address] [place] [address] documented in this encounter Visit Diagnoses Not on filedocumented in this encounter
--- OUTSIDE RECORDS SUMMARY | 2021-12-24 12:23 | XMS_ITS | Encounter Summary ---
:1980 Author Organization [facility] Address [address] [place] [address] Care Team Providers Name Role Phone Unavailable Primary Care Provider Unavailable Encounter Details Date Type Department Care Team Description 10/13/2000 Hospital [facility] A, PA-C [address] [address] [place] [phone] (Wo rk) Social History Tobacco Use Types Packs/Day Years Used Date Never Assessed Sex Assigned at Date Recorded Not on file documented as of this encounter Discharge Disposition Disposition Code Departure Means Destination Auto Discharge documented in this encounter Plan of Treatment Not on filedocumented as of this encounter Visit Diagnoses Not on filedocumented in this encounter
--- OUTSIDE RECORDS SUMMARY | 2021-12-24 12:23 | XMS_ITS | Encounter Summary ---
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 an EE. Suicide Risk Assessment Modifiable Risk Factors: Increased energy, Substance abuse/dependence, Impulsivity, Aggressivity andAgitation Non-Modifiable Risk Factors: Protective Factors: pets at home Overall Risk Rating: Acute: low-Moderate Chronic: Moderate Comments on Assessment of Risk: Ms Alvarado is at low-moderate risk of suicide given lack of suicidal ideation or intent at this time. However, she does display impulsive and agitated behavior in the context of substance use and history of bipolar disorder making her chronic risk higher. Patient does meet criteria for inpatient hospitalization. Patient does meet criteria for involuntaryhold . DIAGNOSIS: Unspecified mood PLAN: 1. Continue 1:1 observation 2. Patient is EEd and awaiting appropriate bed placement 3. Recommend to initiate/offer olanzapine 5mg PO BID 4. In the event of a psychiatric emergency please use olanzapine 10mg IM. If emergency medications are given please notify the psychiatrist in home sales consultant for the ED. Above assessment and plan discussed with psychiatry attending, Dr. Cee. MARCIA RAYO Psychiatry PGY1 10/11/2021 8:58 Associated attestation - Candelario Cee DO - 10/11/2021 1805 EDT Attending Attestation I performed or was present during the rutherford or critical portions of the visit and participated in the management of the patient on 10/11/2021. I agree with the findings and plan of care documented in the resident's/fellow's note. Thomas behaved in a bizarre fashion in the community that placed herself in danger. She persisted in agitation overnight, and continued to demonstrate evidence of pb this morning despite antipsychotic medication received overnight. Symptoms persist despite sufficient time to metabolise the cocaineshe asserts she ingested. I am concerned that she continues to demonstrate these psychiatric symptoms and continues to demonstrate impaired judgement. Demands immediate discharge, unwilling to safety plan. Therefore an EE is initiated. My edits to the note above, if present, are OLIVE. Candelario Cee DO 10/11/2021 18:02 ED Consult - Abhi Hadley - 10/10/2021 1806 EDT Security Intelligence Analyst Initial Assessment Note Inpatient Admit Date: N/A Initial Observation Date (if different): 10/10/2021 Date of Consult: 10/10/2021 Manic Presenting Information: Ct is a 41 yr old female, not previously known to the , presenting for assessment at the [facility] ED due to concerns of apparent pb. Upon first attempt to interview, ct is asleep and open-mouth snoring and not responsive so verbal prompts - though less than 10 minutes prior she was awake and agitated asking to leave. Ten minutes later this leader writer was asked to come back as ctwas awake and asking to speak with this leader writer. Carline had been brought to the ED by [facility] after [facility] responded to the [place] area due to reports carline was acting erratically and running into the road holding her dog. Carline had [place] by her boyfriend, Ernesto, who told responders he was done with her and that he would call her father to meet her at the ED. Ernesto reportedly said she was bipolar and that they had been living in a hotel until a recent domestic dispute. Per [facility], carline was runninginto the road in front of cars who were getting up to speed to go on the highway, trying to get themto stop to give her a ride. EMS reported the behavior was quite dangerous and was scaring community members. In speaking with carline's mother, Franny Marmolejo ([phone]), she reports carline has a historical diagnosis of Bipolar Disorder as well as polysubstance abuse history. Carline was in and out of nursing home and treatment throughout her twenties, using numerous substances and periodically having manic episodes. Carline was served by [facility] at age 31 but has had very little treatment since, including no medications. 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 Since then, every time she gets a similar job, she is terminated a matter of days later, which her mother attributes to retaliation from the company she blew the whistle on. She has also , lost her home, and has been usingsubstances. Her mother reports more recently she has been presenting with pressured speech, lost a great deal of weight, and associating with Ernesto, who is a former substance-using contact. Carline's mother is unsure to what extent carline's presentation is related to pb or substance use or both. In meeting with carline, she presents as hyper-verbal, pressured, agitated, and uncooperative with interview, demanding to leave. She repeatedly says I've already told you, I'm not telling you again to questions that this leader writer had not previously asked. She is unable to say what happened at the [facility], how she got there, and is cagey about where she even lives. She denies taking any medications,denies a MH history, refuses to answer questions about substance use or submit to a UDS. She does note she has an appt with [facility], though says she does not have a regular provider there. This leader writer calls [facility] who has no info available, but will check tomorrow when the provider has computer access. [facility] team reports they do not have ct in their system. Substance Use (if applicable): Carline self-reports as a junkie but refuses to provide info about recent use and is refusing a UDS. Per her mother, she has a poly-substance abuse history. Relevant Psychosocial Information: Ct's last known address is in [place] and ct tacitly admits that's where she lives but provides no further background info. Mental Status Appearance: Disheveled Attitude: Guarded Behavior: Psychomotor Agitation and Poor Impulse Control Pressured Mood: Irritable Sleep Pattern: No Disturbance Noted Appetite: No Disturbance Noted Affect: Mood Congruent Thought Process: Tangential Perception: No Disturbance Noted Cognitions: Alert and Oriented Insight: Poor Judgement: Poor Concentration: Poor Orientation: Oriented times three Risk Assessment Suicidality: Ct not able to participate in a structured interview to ask risk questions. Homicidality: Ct not able to participate in a structured interview to ask risk questions. Clinical Interpretation: Carline is a 41 yr old female who presented for assessment at the [facility] ED due to concerns of apparent pb. Ct does reportedly have a hx of both Bipolar Disorder and polysubstanceabuse. This leader writer believes ct's presentation is most likely a combination of pb and substance use, given that she is associating with a former drug contact. Allowing time for ct to clear from any intoxication will provide a clearer picture of the remaining manic symptoms. Given that she was engaging in such dangerous behavior prior to arrival, ct would meet EE criteria unless it was determined her presentation was purely substance intoxication-related. Plan: The plan for this patient is: Other Remain for further observation and evaluation Consultation with: Dr. Chandana Hadley Security Intelligence Analyst [facility] documented in this encounter Plan of Treatment Not on filedocumented as of this encounter Procedures Procedure Name Priority Date/Time Associated Comments Diagnosis ECG REPORT - SCANNED 10/12/2021 13:27 EDT ECG REPORT - SCANNED 10/12/2021 13:27 EDT COVID-19 TEST [facility] Today 10/12/2021 12:04 LAB PCR EDT COVID-19 TESTING Routine 10/12/2021 12:04 Results for this EDT procedure are i n the results section. COMPLETE BLOOD COUNT STAT 10/12/2021 10:37 Res ults for this AND DIFFERENTIAL EDT procedure a re in the results section. QUANT BETA HCG, STAT 10/12/2021 10:36 Results for this EDT procedure are i n the results section. ETHANOL, BLOOD STAT 10/12/2021 [...] results section. documented in this encounter Results COVID-19 TEST [facility] LAB PCR (10/12/2021 12:04 EDT) Specimen Swab - Anterior nares Performing Organization Address City/State/ZIP Code Phon e Number [facility] [address] [place] [address] SERVICES COVID-19 TESTING (10/12/2021 12:04 EDT) COVID-19 rt-PCR Negative Negative [facility] Result Comment: CENTER LABORATORY This test [...] and epidemiological informatio n. Performed on the [employer] instrument Performing Lab [facility] Lab [facility] LABORATORY SERVICES Specimen Swab - Anterior nares Performing Organization Address City/State/ZIP Code Phon e Number [facility] LABORATORY [address] [place] [address] SERVICES (ABNORMAL) COMPLETE BLOOD COUNT AND DIFFERENTIAL (10/12/2021 10:37 EDT) WBC 6.72 4.00 - 12.40 [facility] LABORATORY SERVICES RBC 4.61 3.86 - 5.04 [facility] LABORATORY SERVICES Hemoglobin 14.5 11.6 - 15.2 [facility] gm/dL LABORATORY SERVICES HCT 44.5 (H) 34.9 - 44.4 % [facility] LABORATORY SERVICES MCV 97 81 - 98 fl [facility] LABORATORY SERVICES MCH 31.5 26.7 - 33.3 pg [facility] LABORATORY SERVICES MCHC 32.6 32.1 - 35.9 [facility] gm/dL LABORATORY SERVICES RDW-CV 11.7 <14.7 % [facility] LABORATORY SERVICES RDW-SD 41.1 <50.4 fl [facility] LABORATORY SERVICES PLT 392 (H) 141 - 377 K/[facility] LABORATORY SERVICES MPV 9.4 (L) 9.5 - 12.7 fl [facility] LABORATORY SERVICES Neutrophils 59.4 % [facility] LABORATORY SERVICES Lymphocytes 31.4 % [facility] LABORATORY SERVICES Monocytes 5.7 % [facility] LABORATORY SERVICES Eosinophils 2.8 % [facility] LABORATORY SERVICES Basophils 0.4 % [facility] LABORATORY SERVICES Immature Grans 0.3 % [facility] LABORATORY SERVICES Absolute Neutrophils 3.99 2.20 - 8.85 [facility] LABORATORY SERVICES Absolute Lymphocytes 2.11 1.09 - 3.30 [facility] LABORATORY SERVICES Absolute Monocytes 0.38 0.10 - 0.80 [facility] LABORATORY SERVICES Absolute Eosinophils 0.19 0.03 - 0.61 [facility] LABORATORY SERVICES Absolute Basophils 0.03 0.01 - 0.11 [facility] LABORATORY SERVICES Absolute Immature 0.02 0.00 - 0.06 [facility] LABORATORY SERVICES Type of Differential: Auto [facility] LABORATORY SERVICES Specimen Blood - Venous blood (substance) Performing Organization Address [facility] Phon e Number [facility] LABORATORY [address] [place] [address] SERVICES ETHANOL, BLOOD (10/12/2021 10:36 EDT) Ethanol, Blood <10Comment: Healthy, <10 mg/dL [facility] non-drinking mg/dL LABORATORY individuals will have SERVICES an ethanol concentration of <10 mg/dL. Specimen Blood - Venous blood (substance) Performing Organization Address [facility] Phon e Number [facility] LABORATORY [address] [place] [address] SERVICES SALICYLATE (10/12/2021 10:36 EDT) Salicylate <1.0 See Note mg/dL [facility] Comment: LABORATORY SERVICES Reference Ranges: Negative: ??<2.0 mg/dL Therapeutic: ??<20.0 mg/dL Toxic: ??>30.0 mg/dL Specimen Blood - Venous blood (substance) Performing Organization Address [facility]/ZIP [facility] Phon e Number [facility] LABORATORY [address] [place] [phone] SERVICES ACETAMINOPHEN (10/12/2021 10:36 EDT) Acetaminophen <10 See Note [facility] Comment: ??g/mL LABORATORY SERVICES NOTE: Therapeutic: ??10 - 30 ug/mL Possible Toxicity: ??150 - 200 ug/mL Probable Toxicity: ??>200 ug/mL Specimen Blood - Venous blood (substance) Performing Organization Address City/[facility]/ZIP Code Phon e Number [facility] LABORATORY [address] [place] [address] SERVICES QUANT BETA HCG, (10/12/2021 10:36 EDT) Beta HCG Quant, <5 <5 mIU/mL [facility] Comment: LABORATORY NOTE: SERVICES : Negative: Less than 5mIU/mL Indeterminant: Between 5 and 25 mIU/mL, recommend repe at testing in 48 hours Positive: Greater than 25 mIU/mL The results of this assay ca n be falsely lowered due to the consumption of Biotin. Specimen Blood - Venous blood (substance) Performing Organization Address [facility]/ZIP Code Phon e Number [facility] LABORATORY [address] [place] [address] SERVICES (ABNORMAL) COMPREHENSIVE METABOLIC PANEL (CMP) (10/12/2021 10:36 EDT) Pathologist Sig nature Sodium 146 (H) 136 - 145 [facility] mmol/L LABORATORY SERVICES Potassium 3.6 3.5 - 5.0 [facility] mmol/L LABORATORY SERVICES Chloride 101 96 - 110 mmol/L [facility] LABORATORY SERVICES CO2 Total 27 22 - 32 mmol/L [facility] LABORATORY SERVICES Glucose 62 (L) 70 - 100 mg/dL [facility] LABORATORY SERVICES BUN 19 10 - 26 mg/dL [facility] LABORATORY SERVICES Creatinine 0.72 0.52 - 1.04 [facility] mg/dL LABORATORY SERVICES eGFR 108 >60 [facility] mL/min/1.73m2 LABORATORY SERVICES Total Protein 7.5 6.3 - 8.2 g/dL [facility] LABORATORY SERVICES Albumin 4.7 3.4 - 4.9 g/dL [facility] LABORATORY SERVICES Alkaline Phosphatase 97 38 - 126 U/L [facility] LABORATORY SERVICES AST 50 (H) 15 - 46 U/L [facility] LABORATORY SERVICES ALT 31 <35 U/L [facility] LABORATORY SERVICES Bilirubin, Total 0.8 <1.4 mg/dL [facility] LABORATORY SERVICES Calcium 9.5 8.5 - 10.5 [facility] mg/dL LABORATORY SERVICES Albumin/Globulin 1.7 1.0 - 2.5 [facility] Ratio LABORATORY SERVICES Anion Gap 18 (H) 5 - 14 [facility] LABORATORY SERVICES Specimen Blood - Venous blood (substance) Performing Organization Address City/State/ZIP Code Phon e Number [facility] LABORATORY [address] [place] [address] SERVICES EKG 12-LEAD (10/12/2021 10:17 EDT) Specimen Narrative [facility] EKG - 10/12/2021 13:2 1 EDT ?[facility] Emergency ? Test Date: ?2021-10-12 Pat Name: ? THOMAS ALVARADO ? Department: ?? ED ? Room: ? GT30 Gender: ? Female ? Welfare Eligibility Worker: ?? [id number] : ?1980 ? Requested By: DAVINA Ruiz Order Number: [id number] ? Sulma MD: ?? OZZIE MOHAN MD ? Measurements Intervals ?Oil Trough ? Rate: ? 68 ? P: ?51 [place]: ? 145 ?QRS: ?39 QRSD: ? 81 ? T: ?50 QT: ? 422 ? QTc: ?450 ? Interpretive Statements SINUS RHYTHM WITH SINUS ARRHYTHMIA Otherwise Within Normal Limits No previous ECG available for comparison I reviewed the tracing and have either a greed or edited the findings in this report. Electronically Signed On 10-13-19 13:21:16 EDT by OZZIE MOHAN MD. Procedure Note Ozzie Mohan MD - 10/12/[address] [facility] r Emergency Test Date: 2021-10-12 Pat Name: THOMAS ALVARADO Department: ED Room: 30 Gender: Female Welfare Eligibility Worker: [id number] : 1980 Requested By: DAVINA Ruiz Order Number: [id number] Reading MD: AROLDO MOHAN MD Measurements Intervals Oil Trough Rate: 68 P: 51 [place]: 145 QRS: 39 QRSD: 81 T: 50 QT: 422 QTc: 450 Interpretive Statements SINUS RHYTHM WITH SINUS ARRHYTHMIA Otherwise Within Normal Limits No previous ECG available for comparison I reviewed the tracing and have either a greed or edited the findings in this report. Electronically Signed On 10-13-19 13:21:16 EDT by OZZIE MOHAN MD. Performing Organization Address City/State/ZIP Code Phon e Number [facility] EKG (ABNORMAL) DRUG SCREEN 11, URINE (10/11/2021 12:00 EDT) Amphetamine Screen, Negative Screen Negative, [facility] [...] ng/mL Cannabinoids Screen, Presumptive Positive, interpret with xni cortéson. (A) Negative, [facility] Ur Comment: Negative [...] 100 ng/mL Propoxyphene Screen, Negative Screen Negative, [facility] Ur Comment: Negative CENTER Confirmation testing available upon request. Screen LABORATORY Suitable for medical purposes only. SERVI ROSY Will not detect all drugs within class. Cutoff = 300 ng/mL Specimen Urine - Urine specimen collection, clean catch (procedure) Performing Organization Address City/State/ZIP Code Phon e Number [facility] [address] [place] [address] SERVICES documented in this encounter Visit Diagnoses Diagnosis Unspecified mood (affective) disorder (H CC-CMS) (HCC) - Primary documented in this encounter Administered Medications Inactive Administered Medications - up to 3 most recent administrations Medication Order MAR Action Action Date Dose Rate Site diphenhydrAMINE (BENADRYL) Given 10/10/2021 20:00 50 mg Right Vastus injection 50 mg EDT Lateralis 50 mg, intramuscular, NOW X1, 1 dose, On Mon10/10/21 at 2000, STAT droperidoL (INAPSINE) 2.5 mg/mL injectio n 1 dose, Starting on Mon10/10/21 at 1617, Until 09/21 at 1453 OLANZapine (ZYPREXA) 10 mg injection 1 dose, Starting on Mon10/10/21 at 2045, Until 09/21 at 2050 OLANZapine (ZYPREXA) 5 mg disintegrating tablet 1 dose, Starting on Mon10/13/21 at 0744, Until 09/21 at 0748 OLANZapine (ZYPREXA) 5 mg disintegrating tablet 1 dose, Starting on Mon10/10/21 at 1555, Until 09/21 at 1453 OLANZapine (ZYPREXA) disintegrating tabl et 10 mg Given 10/13/2021 7:48 EDT 10 mg 10 mg, oral, Once (NO Time Specified), 1 dose, Starting on Mon10/13/21 at 0743, Until Mon10/13/21 at 0748, STAT OLANZapine (ZYPREXA) Given 10/10/2021 20:00 EDT 10 mg Right Vastus Lateralis injection 10 mg 10 mg, intramuscular, NOW X1, 1 dose, On 10/10/21 at 2000, STAT OLANZapine (ZYPREXA) Given 10/10/2021 20:50 EDT 10 mg Left Vastus Lateralis injection 10 mg 10 mg, intramuscular, NOW X1, 1 dose, On Mon10/10/21 at 2045, STAT OLANZapine (ZYPREXA) tablet 10 mg Given 10/14/2021 12:00 EDT 10 mg 10 mg, oral, NOW X1, 1 dose, On Mona 10/14/21 at 1200, STAT OLANZapine (ZYPREXA) tablet 5 mg Given 10/14/2021 8:05 EDT 5 mg 5 mg, oral, 2 TIMES DAILY, First dose on Mon10/11/21 at 2100, Until Discontinued, STAT Given 10/13/2021 20:41 EDT 5 mg Given 10/13/2021 12:00 EDT 5 mg documented in this encounter Active and Recently Administered Medications Times are shown in EDT. Scheduled Medication Order 10/12/2021 10/13/2021 10/14/2021 OLANZapine (ZYPREXA) disintegrating tablet 10 mg (COMPLETED) 0748 (Given - Provider: Abdifatah Paredes RN) 10 mg, oral, Once (NO Time Specified), 1 dose, Starting on Mon10/13/21 at 0743, Until Mon10/13/21 at 0748, STAT OLANZapine (ZYPREXA) tablet 10 mg (COMPLETED) 1200 (Given - Provider: Abdifatah Paredes RN) 10 mg, oral, NOW X1, 1 dose, On Mona 10/14/21 at 1200, STAT OLANZapine (ZYPREXA) tablet 5 mg 0910 (Not Given - Pro vider: Dontae Aguilar RN - Reason: Patient/family refused)101 (Given - Provider: Dontae Aguilar RN)2113 (Not Given - Provider: Carlos Jackson RN - Reason: Patient/family refused - Comment: Pt sleeping) 1200 (Given - Provider: Christen Deng RN - Comment: Pt recieved PRN 10mg dose in AM. Has been sleeping since then)2040 (Given - Provider: Ranjeet Brito RN) 08 (Given - Provider: Abdifatah Paredes RN) 5 mg, oral, 2 TIMES DAILY, First dose on Mon10/11/21 at 2100, Until Discontinued, STAT No Frequency Medication Order 10/12/2021 10/13/2021 10/14/2021 droperidoL (INAPSINE) 2.5 mg/mL injection 1 dose, Starting on 10/10/21 at 1617 OLANZapine (ZYPREXA) 5 mg disintegrating tablet 1 dose, Starting on 10/10/21 at 1555 documented in this encounter Orders Medications Ordered That Might Not Have Count Last Ord ered Date First Ordered Date Been Administered diazePAM (VALIUM) tablet 5 mg 1 10/11/2021 droperidoL (INAPSINE) 2.5 mg/mL injection 1 2021 midazolam intranasal (VERSED) 5 mg/mL kit 1 2021 OLANZapine (ZYPREXA) 5 mg disintegrating 1 022 tablet OLANZapine (ZYPREXA) disintegrating tablet 1 10/10 10 mg Procedures Count Last Ordered Date First Ordered Date ECG REPORT - SCANNED 2 10/13/2021 documented in this encounter Care Teams Medical Artist Relationship Specialty Start Date End Date Melanie Soliman MD PCP - General 08/06/08 10/11/21 [address] [facility] [address] [place] [id number] None, Provider PCP - General 10/12/21 documented as of this encounter
--- OUTSIDE RECORDS SUMMARY | 2021-12-24 12:23 | XMS_ITS | Encounter Summary ---
:1980 Author Organization [place] [address] Care Team Providers Name Role Phone Roldan Crowley MD Primary Care Provider Encounter Details Date Type Department Care Team Description 08/18/2014 Telephone Pain Management at [facility], [place] [address] Social History Tobacco Use Types Packs/Day [...] this encounter Miscellaneous Notes Telephone Encounter - Rachel Maldonado LPN - 08/18/2014 9:58 AM EDT Pt left the following message on nurse voice mail. I am a pt of Dr. Anand. I do need to speakwith somebody due to a work release for the day. I do see Dr. Christensen tomorrow. I will explain further when I speak with someone. Call me back at any time. Spoke with pt, she reports increased pain over this past weekend. Positive for increased pain 08/29, R ankle swelling/warmth/redness/tender, bruising to anterior & lateral ankle. Pt also reports a hard fluid filled sack approx the size of a golf ball. Advised pt to see PCP today to evaluate for possible infection. Pt will follow up with Dr. Christensen tomorrow. Pt verbalized understanding & agrees with plan. documented in this encounter Plan of Treatment Not on filedocumented as of this encounter Visit Diagnoses Not on filedocumented in this encounter Care Teams Analytics Specialist Relationship Specialty Start Date End Date Roldan Crowley MD PCP - General 07/18/14 02/19/19 documented as of this encounter
--- OUTSIDE RECORDS SUMMARY | 2021-12-24 12:23 | XMS_ITS | Encounter Summary ---
:1980 Author Organization [facility] [place] [address] Care Team Providers Name Role Phone Roldan Crowley MD Primary Care Provider Encounter Details Date Type Department Care Team Description 07/27/2017 Telephone Plastic Surgery at [facility] [place] [address] Social History Tobacco Use Types Packs/Day [...] Notes Telephone Encounter - Sofya Howard - 07/27/2017 8:42 AM EDT L/m to alert patient of faxed referral to fredo calixto physical therapist in [facility] for splint+ROM, also to call and set up 4 week follow up from appointment with dr. Mccrary on 07/26 documented in this encounter Plan of Treatment Not on filedocumented as of this encounter Visit Diagnoses Diagnosis Hand crush injury, left, subsequent enco unter documented in this encounter Care Teams Technical Mgr Relationship Specialty Start Date End Date Roldan Crowley MD PCP - General 07/18/14 02/19/19 documented as of this encounter
--- OUTSIDE RECORDS SUMMARY | 2021-12-24 12:23 | XMS_ITS | Encounter Summary ---
:1980 Author Organization [facility] [place] [address] Care Team Providers Name Role Phone Roldan rCowley MD Primary Care Provider Encounter Details Date Type Department Care Team Description 04/28/2015 Telephone Pain Management at [facility] Santy Portillo, [place] [address] Social History Tobacco Use Types Packs/Day [...] Telephone Encounter - Santy Portillo LPN - 04/28/2015 11:29 AM EST Pt called in requesting a script for orthopedic shoes and inserts. This sign writer letterer or painter informed the pt that her concerns would be forwarded to ortho and her doctor here too would be informed. She does not havespecifics for shoe design or insert type. documented in this encounter Plan of Treatment Not on filedocumented as of this encounter Visit Diagnoses Not on filedocumented in this encounter Care Teams Manual Arts Therapist Relationship Specialty Start Date End Date Roldan Crowley MD PCP - General 07/18/14 02/19/19 documented as of this encounter
--- OUTSIDE RECORDS SUMMARY | 2021-12-24 12:23 | XMS_ITS | Encounter Summary ---
:1980 Author Organization [facility] [place] [address] Care Team Providers Name Role Phone Roldan Crowley MD Primary Care Provider Encounter Details Date Type Department Care Team Description 10/02/2014 [facility]ania Child[facility] sural nerve P[facility] [address] [place] [address] PAIN CLINIC [phone] [place], [place] [address] (Wo rk) Social History Tobacco [...] Sign Reading Time Taken Comments Blood Pressure 101/74 10/02/2014 11:23 AM EDT Pulse 68 10/02/2014 11:23 AM EDT Temperature 36.6 ??C (97.9 ??F) 10/02/2014 11:23 AM EDT Respiratory Rate 18 10/02/2014 11:23 AM EDT Oxygen Saturation 98% 10/02/2014 11:23 AM EDT Inhaled Oxygen Concentration - - Weight 68 kg (150 lb) 10/02/2014 11:23 AM EDT Height 170.2 cm (5' 7) 10/02/2014 11:23 AM EDT Body Mass Index 23.49 10/02/2014 11:23 AM EDT documented in this encounter Progress Notes Aries Christensen MD - 10/02/2014 12:22 PM EDT Ms. Alvarado presents today with continued pain in the distribution of the sural nerve in her right lower extremity. She had a metal cable injury which occurred on 01/28/2014. On physical exam today, she no longer has any allodynia; however, she continues to have [id number] or severe pain almost constantly, even at rest. She finds that she has been tripping a lot when she walks because it is painful for her to dorsiflex her ankle on the right. On physical exam as well, she has normal strength in her extensor hallucis longus, but her foot, when she walks, her foot is somewhat plantar flexed just because it hurts so much to dorsiflex. She is tolerating her meds. She has a personal companion and she is feeling better from that regard. 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 I am giving her a prescription today for topical cream including ketamine, amitriptyline, gabapentin, etc., and hopefully this will make a difference for her; otherwise, I think her only real options are opioids and spinal cord stimulation as I have mentioned in the past. Because of her history of substance abuse, I am not going to be treating her with opioids and I think that the spinal cord stimulator is such an invasive option that I would like to hold off on that and avoid it if possible. I will be seeing her back in three months. She is articulate and clear headed, full of energy as always, displaying a normal range of emotion and actually doing pretty well. She is not depressed. documented in this encounter Plan of Treatment Not on filedocumented as of this encounter Visit Diagnoses Diagnosis Neuropathy of right sural nerve documented in this encounter Care Teams Precision Instrument Maker Relationship Specialty Start Date End Date Roldan Crowley MD PCP - General 07/18/14 02/19/19 documented as of this encounter
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
--- OUTSIDE RECORDS SUMMARY | 2021-12-24 12:23 | XMS_ITS | Encounter Summary ---
:1980 Author Organization [facility] Address [address] [place] [address] Care Team Providers Name Role Phone Unavailable Primary Care Provider Unavailable Encounter Details Date Type Department Care Team Description 08/01/2008 Hospital Encounter [facility] - Monique Jiang PA [address] [place], [place] [id number] [place] [id number] (Wo rk) Social History Tobacco Use Types [...]
--- OUTSIDE RECORDS SUMMARY | 2021-12-24 12:23 | XMS_ITS | Encounter Summary ---
:1980 Author Organization [facility] [place] [address] Care Team Providers Name Role Phone Roldan Crowley MD Primary Care Provider Encounter Details Date Type Department Care Team Description 08/19/2014 Telephone Pain Management at Siomara Piper, [place] [address] Social History Tobacco Use Types Packs/Day [...] this encounter Miscellaneous Notes Telephone Encounter - Constance Brown RN - 08/20/2014 4:45 PM EDT Patient called again requesting a note, patient states she has her workmans comp papers, but is requesting a specific note for work release ON 08/18/14. Nurse called family caseworker to clarify need, no answer, message left for nurse family caseworker to call Telephone Encounter - Constance Brown RN - 08/20/2014 1:57 PM EDT Call received from 'Kitty Weber' nurse family caseworker at [facility] requesting that we fax the work note to . Telephone Encounter - Siomara Camejo RN - 08/19/2014 1:26 PM EDT Patient left message on Nurse voice mail she states I need a note for out of work I thought that Dr. Christensen was going to do that forwarded message to Dr. Christensen for review and recommendation documented in this encounter Plan of Treatment Not on filedocumented as of this encounter Visit Diagnoses Not on filedocumented in this encounter Care Teams Environmental Adviser Relationship Specialty Start Date End Date Roldan Crowley MD PCP - General 07/18/14 02/19/19 documented as of this encounter
--- OUTSIDE RECORDS SUMMARY | 2021-12-24 12:23 | XMS_ITS | Encounter Summary ---
:1980 Author Organization [facility] [place] [address] Care Team Providers Name Role Phone Roldan Crowley MD Primary Care Provider Reason for Visit Reason Onset Date Comments Referral 06/26/2017 Encounter Details Date Type Department Care Team Description 06/26/2017 Telephone Orthopaedics at [facility] Laine David, [place] [address] Social History Tobacco Use Types Packs/Day [...] this encounter Miscellaneous Notes Telephone Encounter - Domenic Keen - 06/26/2017 4:36 PM EDT Referral was made to the plastics department Telephone Encounter - Laine David RN - 06/26/2017 11:30 AM EDT Please see contact numbers provided in this encounter, for call back numbers. UPHOLSTERY CLEANER is requesting to make a referral to an upper extremity provider. Routed to scheduling to help facilitate. documented in this encounter Plan of Treatment Not on filedocumented as of this encounter Visit Diagnoses Not on filedocumented in this encounter Care Teams Professor Of Voice Relationship Specialty Start Date End Date Roldan Crowley MD PCP - General 07/18/14 02/19/19 documented as of this encounter
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
--- OUTSIDE RECORDS SUMMARY | 2021-12-24 12:23 | XMS_ITS | Encounter Summary ---
:1980 Author Organization [facility] Address [address] [place] [address] Care Team Providers Name Role Phone Roldan Crowley MD Primary Care Provider Reason for Visit Reason Comments Follow-up left hand MRI Encounter Details Date Type Department Care Team Description 07/26/2017 Office Visit Plastic Surgery at Adama Mccrary Hand crush injury, [facility] MD Trina left, subsequent [address] 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 female who sustained an injury of the left hand when her hand was caught in the hinge of a road sign while at work. She presents to discuss the results of her MRI. She feels as though her pain is worse since her last visit. She also experiences some coldness of her small finger. She would like a new splint as she has worn out her old one. Examination: No acute distress Left Upper extremity: Hand: still very sensitive to LT around small MP, motion of small finger improving but still tener, some decreased sensation to ulnar side of ring, no nail abnormality, paler in area of splint wear, nogross deformity/masses Diagnostic Testing: MRI left hand: IMPRESSION 1. Mild subcutaneous edema and swelling around the volar-ulnar aspect of the small finger MCP joint consistent with soft tissue injury. Associated thickening of both the radial collateral and ulnar collateral ligaments of the small finger MCP joint, consistent with sprain/injury but no MR evidence of tendon retraction. Impression: Brandi Alvarado is a 37 y.o. female patient with a left hand crush injury secondary to trauma. I explained that her MRI shows no full thickness damage to her ligaments. The test does show inflammation around the site of her injury. I also explained that pain is not necessarily the best indicator of how well she is healing at this time. Her nerves were likely crushed at the time of her injury and will take some time to recover. During recovery she should expect altered sensation and temperature difference of her finger as the nerve return to normal. Worker's compensation paperwork was filled out today stating she may work with her splint in place but should not be lifting more than 5 lbs. Plan: External referral for OT, splint and ROM Follow up 3-4 weeks ISofya, have performed the documentation for this encounter [...] unter documented in this encounter Care Teams Global Logistics Analyst Relationship Specialty Start Date End Date Roldan Crolwey MD PCP - General 07/18/14 02/19/19 documented as of this encounter
--- OUTSIDE RECORDS SUMMARY | 2021-12-24 12:23 | XMS_ITS | Encounter Summary ---
:1980 Author Organization [facility] Address [address] [place] [address] Care Team Providers Name Role Phone Janny Biswas MD, Melanie Primary Care Provider Unavailable Encounter Details Date Type Department Care Team Description 02/28/2005 Results Only [facility] - Juliette jorge, MD Molly conversion [address] [place] [address] [place], [place] [id number] [phone] Social History Tobacco Use Types Packs/Day Years Used Date Never Assessed Sex Assigned at Date Recorded Not on file documented as of this encounter Plan of Treatment Not on filedocumented as of this encounter Procedures Procedure Name Priority Date/Time Associated Diagnosis Comme nts CYTOPATHOLOGY Routine 02/28/2005 0:00 EST Results for this procedure are i n the results section . documented in this encounter Results CYTOPATHOLOGY (02/28/2005 0:00 EST) Pathology Report: CYTOPATHOLOGY REPORT [facility] Reports generated via electronic interface contain guillermo ginal data; however they are lacking the format of the original re port. Caution should be taken when reading/interpreting unfo rmatted reports. Name: ? THOMAS MARMOLEJO ? Accession #: ? [id number] : ? 1980 (Age: 25) ??F ?Collect Date: ? 10/2005 Location: ? [facility] ? Receive Date : ? 03/03/2005 Provider: ?MOLLY LANE MD Copy to: ?BEVERLY JENNINGS INVESTMENT REPRESENTATIVE ? Specimen/Source: ?ThinPrep Pap Test, E ndocervix, processed on MapMyID ThinPrep Imaging System, with manual evaluation Last Menstrual Period: ? SPECIMEN ADEQUACY ? Satisfactory for Evaluation - transformation zone component absent GENERAL CATEGORIZATION ? Negative for Intraepithelial Lesion or Malignan cy ? Document reviewed and electronically signed by: ? ALLEN Collins(ASCP) ? Report Date: ??03/04/2005 10:24 End of Report Specimen Performing Organization Address City/State/ZIP Code Phon e Number [facility] [address] [place] [address] [facility] [address] [place] [address] documented in this encounter Visit Diagnoses Not on filedocumented in this encounter Care Teams Medical Dermatologist Relationship Specialty Start Date End Date Melanie Soliman MD PCP - General 08/06/08 10/11/[address] [address] documented as of this encounter
--- OUTSIDE RECORDS SUMMARY | 2021-12-24 12:23 | XMS_ITS | Encounter Summary ---
:1980 Author Organization [facility] [place] [address] Care Team Providers Name Role Phone Roldan Crowley MD Primary Care Provider Reason for Visit Reason Comments Right Ankle Pain Right Leg Pain Encounter Details Date Type Department Care Team Description 08/19/2014 Follow-Up Pain Management at A[facility] Christensen ropjoe of right Tania Childers MD sural nerve [facility] [address] PAIN CLINIC [phone] [place], [place] [address] (Wo rk) Social History Tobacco [...] Sign Reading Time Taken Comments Blood Pressure 113/77 08/19/2014 11:34 AM EDT Pulse 106 08/19/2014 11:34 AM EDT Temperature - - Respiratory Rate - - Oxygen Saturation 99% 08/19/2014 11:34 AM EDT Inhaled Oxygen Concentration - - Weight 68.5 kg (151 lb) 08/19/2014 11:34 AM EDT Height 167.6 cm (5' 6) 08/19/2014 11:34 AM EDT Body Mass Index 24.37 08/19/2014 11:34 AM EDT documented in this encounter Progress Notes Aries Christensen MD - 08/19/2014 12:13 PM EDT Ms. Alvarado presents today with little improvement. She is using Lyrica 100 mg twice a day. She says that her pain on average for the past week is an 8 on a 0 to 10 verbal numerical scale which is worse than what it was last time. What is different is that she been working approximately five hours twice a week and unfortunately she has a two-hour drive each way coming and going from work and this is really too much for her and I think I am not surprised that this nine-hour a day would be too much for her at this time. She is going to water therapy, but she does not really think that this is happening. Her injury was on 01/28/2014. She is walking, but very limited distances. She saw Dr. Alfonso today and there is nothing Orthopedic that can be done to help with her foot pain and ankle pain. 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 She is walking with a limp. She is displaying a normal range of emotion. She is articulate and clearheaded. She has had a functional capacity evaluation which shows that she can only function at the sedentary level and her previous job was at a moderate level, so she is not ready to return to work and she got her EMG which was essentially normal, it is still possible to have severe nerve injury with a normal EMG; however, overall I think it is a good prognostic indicator and indicates that it is likely that at some point in time she is going to get better even though it might take a year or two. She cannot tolerate a higher dose of Lyrica because it makes her drowsy. She has similar experience with gabapentin. Neither she nor I want her to take opioids. We briefly discussed spinal cord stimulation again, but I do not think this is really in her best interest at this time, and she agrees. The plan then is I would recommend that she discontinue water therapy. She needs to get exercise. I think physical therapy is great for a focused approach to managing her injury, but I think that a broader approach will help her get back to work more quickly, that is an approach that accounts for the fact that she is very sedentary because of her injury and she needs to improve both from an endurance and a flexibility and a strengthening perspective and I think that she would do much better with a radio personality and the gym close to her house than she is doing with physical therapy and I would strongly suggest this. I think that she might drive some benefit from Lidoderm patches, she can use up to three at a time and she can leave them on 24 hours a day if necessary, but there might be some advantage to using them from a 12-hour on and 12-hour off perspective. 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 I will be seeing her back in two months. We spent 30 minutes together today, 20 of which was spent with discussing the results of her functional capacity evaluation, EMG, other implications, medication use, and etc. documented in this encounter Plan of Treatment Not on filedocumented as of this encounter Visit Diagnoses Diagnosis Neuropathy of right sural nerve documented in this encounter Care Teams Typewriter Assembly And Parts Inspector Relationship Specialty Start Date End Date Roldan Crowley MD PCP - General 07/18/14 02/19/19 documented as of this encounter
--- OUTSIDE RECORDS SUMMARY | 2021-12-24 12:23 | XMS_ITS | Encounter Summary ---
:1980 Author Organization [facility] [place] [address] Care Team Providers Name Role Phone Roldan Crowley MD Primary Care Provider Encounter Details Date Type Department Care Team Description 07/16/2014 External Results [place] [facility] [place] Durand MD [facility] [place] [address] NEUROLOGY DEPT. [phone] [place], [place] [address] (Wo rk) Social History Tobacco [...] Name Priority Date/Time Associated Diagnosis Comme nts EMG SCAN Routine 07/15/2014 documented in this encounter Results Scan Doc: EMG (07/15/2014) Narrative This result has an attachment that is no t available. Hung Durand MD MEDIA MGR SCAN EXT ORDR/RSLT documented in this encounter Visit Diagnoses Not on filedocumented in this encounter Care Teams Solar Energy Sales Specialist Relationship Specialty Start Date End Date Roldan Crowley MD PCP - General 07/18/14 02/19/19 documented as of this encounter
--- OUTSIDE RECORDS SUMMARY | 2021-12-24 12:23 | XMS_ITS | Encounter Summary ---
:1980 Author Organization [facility] Address [address] [place] [address] Care Team Providers Name Role Phone Janny Biswas MD, Melanie Primary Care Provider Unavailable Encounter Details Date Type Department Care Team Description 05/13/2010 Hospital Encounter [facility] - Yamileth Dahl [place] [address] [facility] [address] [place], [place] [id number] [place] [phone] (Wo rk) Social History Tobacco Use Types Packs/Day Years Used Date Never Assessed Sex Assigned at Date Recorded Not on file documented as of this encounter Discharge Disposition Disposition Code Departure Means Destination Home or Self Care documented in this encounter Plan of Treatment Not on filedocumented as of this encounter Visit Diagnoses Not on filedocumented in this encounter Care Teams Physical Ther Relationship Specialty Start Date End Date Melanie Soliman MD PCP - General 08/06/08 10/11/21 [address] [place] [address] documented as of this encounter
--- OUTSIDE RECORDS SUMMARY | 2021-12-24 12:23 | XMS_ITS | Encounter Summary ---
:1980 Author Organization [facility] Address [address] [place] [address] Care Team Providers Name Role Phone Janny Biswas MD, Melanie Primary Care Provider Unavailable None, Provider Primary Care Provider Unavailable Encounter Details Date Type Department Care Team Description 05/30/2001 Hospital Encounter [facility] Yonatan [facility] 111 [facility] [address] [place], [place] [id number] [place] [address] Pavilion, [address] [place] [id number] (Wo rk) Social History Tobacco Use Types Packs/Day Years Used Date Never Assessed Sex Assigned at Date Recorded Not on file documented as of this encounter Plan of Treatment Not on filedocumented as of this encounter Procedures Procedure Name Priority Date/Time Associated Comments Diagnosis RAD OBSTETRICAL Routine 06/19/2001 15:00 Resul ts for this COMPLETE EDT procedure are i n the results section. documented in this encounter Results RAD US OBSTETRICAL COMPLETE (06/19/2001 15:00 EDT) Anatomical Region Laterality Modality Other Specimen Narrative [facility] - 12/03/2008 2: 40 EDT BRIDGETT,VALPRIC ACID EXPOSURE A vasquez intrauterine gestation was i dentified in vertex presentation, with anterior placental im plantation. LMP: 02/05/01 SALLIE: Volume WNL ANATOMY SURVEY: No anomalies observed -- head, face, tho rax, spine, upper/lower extremities, abdominal wall/cavity, stom ach/bladder fluid, right/left kidney MATERNAL ANATOMY SURVEY: No anomalies observed -- uterus Poorly seen -- right ovary, left ovary FACIAL ANATOMY SURVEY: No anomalies observed -- orbits, nostril s, lips, mandible Poorly seen - palate CRANIAL ANATOMY SURVEY: No anomalies observed -- midline, latera l ventricles, choroid plexus, thalami, cerebellum BIOMETRIC PARAMETERS: BPD = 4.6, 19.9; HC = 16.9, 19.5; FL = 2 .9, 19.0; AC = 13.7, 19.1 Estimated gestational age by ultrasound = 19.4 wks. EFW = 274 grams. ADDITIONAL BIOMETRY: FL/HC = 0.17; CM = 0.6 cm; VA = 0.6 cm; NUC = 0.3 cm; CEREBELLUM = 2.0 cm; GA = 20.2 wks; ULN = 2.6 cm; GA = 19.4 wks; TIB = 2.5 cm; GA = 18.9 w ks; HUM = 2.9 cm; GA = 19.4 wks. COMMENTS: Good movement observed. biom etry consistent with prior dating. No anomalies ayo ntified including no evidence of neural tube defect. Note: please also see consult letter dictation of 05/30/01. Initial serum AFP of 2.21, repeat test normal at 1.65 /[facility] Procedure Note Roldan Chaidez MD - 12/03/2008 BRIDGETT,VALPRIC ACID EXPOSURE A vasquez intrauterine gestation was i dentified in vertex presentation, with anterior placental im plantation. LMP: 02/05/01 SALLIE: Volume WNL ANATOMY SURVEY: No anomalies observed -- head, face, tho rax, spine, upper/lower extremities, abdominal wall/cavity, stom ach/bladder fluid, right/left kidney MATERNAL ANATOMY SURVEY: No anomalies observed -- uterus Poorly seen -- right ovary, left ovary FACIAL ANATOMY SURVEY: No anomalies observed -- orbits, nostril s, lips, mandible Poorly seen - palate CRANIAL ANATOMY SURVEY: No anomalies observed -- midline, latera l ventricles, choroid plexus, thalami, cerebellum BIOMETRIC PARAMETERS: BPD = 4.6, 19.9; HC = 16.9, 19.5; FL = 2 .9, 19.0; AC = 13.7, 19.1 Estimated gestational age by ultrasound = 19.4 wks. EFW = 274 grams. ADDITIONAL BIOMETRY: FL/HC = 0.17; CM = 0.6 cm; VA = 0.6 cm; NUC = 0.3 cm; CEREBELLUM = 2.0 cm; GA = 20.2 wks; ULN = 2.6 cm; GA = 19.4 wks; TIB = 2.5 cm; GA = 18.9 w ks; HUM = 2.9 cm; GA = 19.4 wks. COMMENTS: Good movement observed. biom etry consistent with prior dating. No anomalies ayo ntified including no evidence of neural tube defect. Note: please also see consult letter dictation of 05/30/01. Initial serum AFP of 2.21, repeat test normal at 1.65 /[facility] Performing Organization Address City/State/ZIP Code Phon e Number [facility] [address] [facility] [place] [address] [facility] [address] [place], [place] [address] documented in this encounter Visit Diagnoses Not on filedocumented in this encounter Care Teams Ui Software Engineer Relationship Specialty Start Date End Date Melanie Soliman MD PCP - General 08/06/08 10/11/21 [address] [facility] [address] [place] [address] None, Provider PCP - General 10/12/21 documented as of this encounter
--- OUTSIDE RECORDS SUMMARY | 2021-12-24 12:24 | XMS_ITS | Encounter Summary ---
:1980 Author Organization [facility] [place] [address] Care Team Providers Name Role Phone Lisset Suárez APRN Primary Care Provider Encounter Details Date Type Department Care Team Description 01/27/2014 Orders Only Urology at [facility] Santy Skinner MD [facility] [place] [address] UROLOGY [phone] [place], [place] [address] (Wo rk) Social History Tobacco Use Types Packs/Day Years Used Date Never Assessed Sex Assigned at Date Recorded Not on file documented as of this encounter Plan of Treatment Not on filedocumented as of this encounter Visit Diagnoses Not on filedocumented in this encounter Care Teams Forestry Contractor Relationship Specialty Start Date End Date Lisset Suárez APRN PCP - General 06/11/14 06/11/14 [facility] [address] [place] [address] documented as of this encounter
--- OUTSIDE RECORDS SUMMARY | 2021-12-24 12:24 | XMS_ITS | Encounter Summary ---
:1980 Author Organization [place] [address] Care Team Providers Name Role Phone Lisset Suárez VIKTORIA Primary Care Provider Encounter Details Date Type Department Care Team Description 02/24/2014 Orders Only Pain Management at [facility] Aries Christensen, [facility] [place] [address] [facility] [phone] PA[facility] [place], [place] [address] (Wo rk) Social History Tobacco Use Types Packs/Day Years Used Date Never Assessed Sex Assigned at Date Recorded Not on file documented as of this encounter Plan of Treatment Not on filedocumented as of this encounter Procedures Procedure Name Priority Date/Time Associated Diagnosis Comme nts FILM LIBRARY Routine 02/24/2014 8:00 AM Results f or this STORAGE ONLY DX EST procedure ar e in ANKLE the results section. documented in this encounter Results Film Library- Storage only DX Ankle (02/24/2014 8:00 AM EST) Anatomical Region Laterality Modality Other Specimen (Source) Anatomical Collection Method Collection Time Re ceived Time Location / / Volume Laterality 02/24/2014 8:00 AM EST Narrative 06/11/2014 7:40 AM EDT This is a Non-reportable exam Procedure Note REYNA, UNSIGNED REPORT - 06/11/2014Formatt ing of this note might be different from the original. This is a Non-reportable exam Aries Christensen MD IM FILM LIBRARY ORDERABLES documented in this encounter Visit Diagnoses Not on filedocumented in this encounter Care Teams Artillery Specialist Relationship Specialty Start Date End Date Lisset Suárez APRN PCP - General 06/11/14 06/11/14 [facility] [address] [address] documented as of this encounter
--- OUTSIDE RECORDS SUMMARY | 2021-12-24 12:24 | XMS_ITS | Encounter Summary ---
:1980 Author Organization [facility] [place] [address] Care Team Providers Name Role Phone KaminiPriscaLissetherber Farah APRN Primary Care Provider Reason for Referral Surgical (Routine) - Complete-Ref Provider Notified Specialty Diagnoses / Procedures Referred By Contact Refer red To Contact Orthopaedic Surgery / Diagnoses Closed right ankle fracture, initial encounter Neuropathy of right sural nerve [facility] Christensen Paul J, MD Orthopaedics J, MD [facility] [address] [facility] [place] [place], [place] [id number] [place] [id number] Referral ID Status Reason Start Expiration Visits Visits Date Date Requested Authorized [id number] Complete-Ref Consult, 06/11/2014 06/11/2015 1 1 Provider Test & Notified Treat Reason for Visit Reason Comments Pain Management Right Ankle Pain Encounter Details Date Type Department Care Team Description 06/11/2014 Office Visit Pain Management at [facility] right ankle fracture, initial encounter; Tania Childers MD Neuropathy of right sural nerve [facility] [address] [place] [facility] [address] [place] [address] [phone] Social History Tobacco Use Types Packs/Day Years Used Date Current Every Day Smoker Cigarettes 0.5 16 Sex Assigned at Date Recorded Not on file documented as of this encounter Last Filed Vital Signs Vital Sign Reading Time Taken Comments Blood Pressure 117/71 06/11/2014 9:24 AM EDT Pulse 72 06/11/2014 9:24 AM EDT Temperature - - Respiratory Rate - - Oxygen Saturation 100% 06/11/2014 9:24 AM EDT Inhaled Oxygen Concentration - - Weight 70.3 kg (155 lb) 06/11/2014 9:24 AM EDT Height 167.6 cm (5' 6) 06/11/2014 9:24 AM EDT Body Mass Index 25.02 06/11/2014 9:24 AM EDT documented in this encounter Progress Notes Areis Christensen MD - 06/11/2014 11:26 AM EDT I am seeing Ms. Alvarado at the request of the Aimee Padilla and Roldan Crowley for recommendations regarding her right ankle pain. Thanks so much Ms. Padilla and Dr. Crowley for allowing me to participate in the care of Ms. Brandi Alvarado who as you know is a very pleasant 34-year-old woman with a chief complaint of pain in her right ankle. On January 28, she got hit on the medial aspect of her leg with a cable causing an inversion injury of her ankle. She had pain and underwent physical therapy, continued working, and it was not until 02/24/2014 that she was diagnosed with a fracture of the distal tibia. She did not have a cast but she had an Aircast, which she used for approximately two months. Her pain right now is an 8 on a 0 to 10 verbal numerical scale. On average for the last week, it has been a 7 or 8, at its low it has been a 7, at its high it has been a 9. She has two components of her pain, which she can clearly distinguish. She has an aching pain that as soon as she stands up becomes quite traumatic and she describes this on average as being a 7 or an 8. She has nerve pain, which over the course of the last week has been a 7 or an 8 also, but it was not 8 or 9 and Lyrica has been useful to reduce that specific pain down to about a 7. Her worse pain during the course of the day is a 9 or at least is a 7. She has had no spreading of her pain. It has been staying the same. She states that at times her ankle would be very swollen, but it does not appear swollen today and in fact the right leg appear to be thinner than the left leg and 7 cm below the inferior margin of the patella. The diameter of the right leg is 35 cm and the left is 36 and I think that this is close enough to say that I do not really think there is a difference. She continued to work until May 29 and the pain just became too great and she has not been able to work since then. SOCIAL HISTORY: She lives in [facility] with her and her 12 and 7-year-old children. She was working 60 hours a week and now she is down to 0 hours a week. She barely can do anything that her ankle is so sore. 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 She has no prior history of alcoholism. She continues to smoke half a pack of cigarettes per day and everybody has told her that she should stop including me. When asked about her mood, it is a little hard to pin down. She states there is some anxiety. She has not had a problem with anxiety in the past. She is down, but not suicidal, and she has been treated for depression in the past, but not currently. FAMILY HISTORY: She does not know anything about her biological parents. She was adopted. PAST MEDICAL HISTORY: Past medical history is unremarkable. PAST SURGICAL HISTORY: She has had an ACL repair, tubal ligation, and T and A. REVIEW OF SYSTEMS: Ten systems were reviewed and were all negative. PHYSICAL EXAMINATION: She is a fit-appearing young woman who is somewhat intense and appears to have some degree of pressured speech during our visit today, but she attributes this to the fact that she is just having so much pain and she was so anxious about this appointment when I discussed it with her. Her sclerae are nonicteric. She has normal hearing to finger rub bilaterally. Her throat is clear. Auscultation of the heart reveals a regular rate and rhythm. Her lungs are clear to auscultation. Her abdomen is soft and nontender. On examination of her lower extremities, diameters were diagnosed as above. She has allodynia to cotton vest in the distribution of the sural nerve on the right. It is a very clear ambiguous sural nerve distribution. She has a normal dorsalis pedal pulse. When she walks, she is using a cane and as soon as she puts an ounce of pressure on her right foot, she winces in pain and this is the aching pain that she is feeling more so than the neuropathic pain with activity. She has normal sensation on the top of her foot and the rest of her distal lower extremity. 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 PLAN: We had a very lengthy discussion today and I have referred her for an EMG of the right lower extremity so that we can document that this is a sural nerve injury if possible and also to serve as a baseline for future reference if we are trying to assess recovery. I have referred her to Dr. Alfonso for his opinion about whether or not she has any surgical options as well as about prognosis and any advice that he can offer to try to help us. She was wearing a very tight brace around her leg, which I advised her that she should take off. She does have an air boot at home and she is going to try that instead. We discussed the fact that I prefer that she did not wear anything on her lower extremity, but she states that she really cannot walk without it and I wonder if Dr. Alfonso could give us advice or do a referral to help us get the proper device for her lower extremity to help her walk and not exacerbate her sural neuropathy. She has started using Lyrica 150 mg a day in divided doses and she finds that she is better from this. Her care is being managed by her occupational ther and I would recommend that she increase the Lyrica to 100 mg three times a day for two weeks and then to 150 mg three times a day and see how she does. She was originally sedated and she is less sedated now from her Lyrica and I have advised her that she will develop tolerance to the sedation. I have also discussed the fact that it can stimulate weight gain and she needs to be aware of that. She states that the Lyrica actually causes her to be have a reduction in her appetite. I talked about the use of antidepressants and she adamantly does not want to take any antidepressants since she has been on many in the past and they have not made her feel good and not helped her. The antidepressants of her pain not moved. She brought up the use of opioids and became tearful and very adamant that she want a treatment with opioids and I have advised her that it is possible though we may treat her with opioids at some point in time, but that would only be as a last resort. I have advised her that her risk of addiction using opioids is very high and I have advised her that at the age of 34, nobody is anxious about treating her with opioids. When I see her a month from now, which is my plan, I may talk about a short course of opioids meaning no more than a year and it will be goal directed. We talked about the fact that she is seeing a physical therapist, but the physical therapist cannot really do very much for her and I think she would do much better with a personal banking advisor and a gym membership and I have talked to her about weightlifting and other activities that would be useful for her. We will leave it up to her personal banking advisor to be more specific with that and I have also give her the name of Dr. Rivera's upcoming educational series on behavioral medicine for chronic pain and we will see if we can get her enrolled in that. She seems like a very nice young woman, I hope we can help her. We spent 80 minutes together today, 50 of which were spent with my advising her regarding all the above items. I had to interrupt her multiple occasions because she tended to go on and on at a very rapid rate of speech if I did not. documented in this encounter Plan of Treatment Scheduled Referrals Name Type Priority Associated Order Schedule Diagnoses Referral to Outpatient Referral Routine Closed right ankle Or dered: Orthopaedics fracture, initial 06/11/2014 encounter Neuropathy of right sural nerve documented as of this encounter Visit Diagnoses Diagnosis Closed right ankle fracture, initial enc ounter Neuropathy of right sural nerve documented in this encounter Care Teams Talent Solutions Manager Relationship Specialty Start Date End Date Lisset Suárez APRN PCP - General 06/11/14 06/11/14 [facility] [address] [place] [address] documented as of this encounter
--- OUTSIDE RECORDS SUMMARY | 2021-12-24 12:24 | XMS_ITS | Encounter Summary ---
:1980 Author Organization [facility] [place] [address] Care Team Providers Name Role Phone Lisset Suárez VIKTORIA Primary Care Provider Encounter Details Date Type Department Care Team Description 04/23/2014 Orders Only [facility], [facility] [place] [address] [facility] [phone] PAIN [facility]INIC [place], [place] [address] (Wo rk) Social History Tobacco Use Types Packs/Day Years Used Date Never Assessed Sex Assigned at Date Recorded Not on file documented as of this encounter Plan of Treatment Not on filedocumented as of this encounter Procedures Procedure Name Priority Date/Time Associated Diagnosis Comme nts FILM LIBRARY Routine 04/23/2014 7:45 AM Results f or this STORAGE ONLY DX EST procedure ar e in ANKLE the results section. documented in this encounter Results Film Library- Storage only DX Ankle (04/23/2014 7:45 AM EST) Anatomical Region Laterality Modality Other Specimen (Source) Anatomical Collection Method Collection Time Re ceived Time Location / / Volume Laterality 04/23/2014 7:45 AM EST Narrative 06/11/2014 7:37 AM EDT This is a Non-reportable exam Procedure Note REYNA, UNSIGNED REPORT - 06/11/2014Formatt ing of this note might be different from the original. This is a Non-reportable exam Aries Christensen MD IM FILM LIBRARY ORDERABLES documented in this encounter Visit Diagnoses Not on filedocumented in this encounter Care Teams C D Still Operator Relationship Specialty Start Date End Date Lisset Suárez APRN PCP - General 06/11/14 06/11/14 [facility] [address] [place] [address] documented as of this encounter
--- OUTSIDE RECORDS SUMMARY | 2021-12-24 12:24 | XMS_ITS | Encounter Summary ---
:1980 Author Organization [facility] [place] [address] Care Team Providers Name Role Phone KaminiPriscaLissetherber Farah APRN Primary Care Provider Reason for Referral Physical Therapy (Routine) - Specialty Diagnoses / Procedures Referred By Contact Refer red To Contact Physical Therapy Diagnoses Closed right ankle fracture, sequela Lizett Yanes MD [facility] [place] [address] Referral ID Status Reason Start Date Expiration Date Visits V isits Requested Authorized [id number] Evaluate and 06/18/2014 12/15/2014 12 12 Treat Reason for Visit Reason Comments Right Ankle Fracture DOI 01/28/14 Encounter Details Date Type Department Care Team Description 06/18/2014 Office Visit Orthopaedics at [facility] Valentín Alfonso MD Closed right ankle [facility] MEDICAL fracture, [facility] [place] [address] ORTHOPAEDIC [phone] SURGERY [place], [place] [address] Social History Tobacco Use Types [...] Sign Reading Time Taken Comments Blood Pressure 116/84 06/18/2014 9:46 AM EDT Pulse 71 06/18/2014 9:46 AM EDT Temperature - - Respiratory Rate - - Oxygen Saturation - - Inhaled Oxygen Concentration - - Weight 70.3 kg (155 lb) 06/18/2014 9:46 AM EDT pt state s Height 167.6 cm (5' 6) 06/18/2014 9:46 AM EDT pt state s Body Mass Index 25.02 06/18/2014 9:46 AM EDT documented in this encounter Progress Notes Valentín Alfonso MD - 06/19/2014 12:51 PM EDT I have seen the patient and reviewed the resident's above history and I agree with the details as written. The assessment and plan were formulated in discussion with me and I agree with them as documented. Alirio Shay. Lizett Yanes MD - 06/18/2014 11:11 AM EDT New Patient Evaluation Date of Evaluation: 06/18/2014 Referring Provider: A[facility] Christensen History of Present Illness: Brandi Alvarado is a 34 y.o. woman with a chief complaint of right ankle pain who is seen in consultation from Dr. Christensen. She was injured at work in 01/2014 when a cable hit her ankle causing a twisting injury. She was initially treated for an ankle sprain. X-rays approximately 3 weeks later showeda minimally displaced posterior malleolus fracture. She was treated in an air cast boot, NWB for approximately 6-8 weeks. She advanced to WBAT in a lace-up ankle brace and started working with PT. She returned to work 1-day per week. She reports that after an 8 hour work day in early May, she had increased swelling and pain, which has not improved. She reports hypersensitivity and pain in the right ankle and foot that inhibits her weight bearing. It is difficult to determine exactly when the hypersensitivity started. She is currently non-weight bearing. She has not been wearing a brace since Dr. Christensen recommended stopping bracing last week. She has continued to work with PT although she is not sure she is making progress. She denies any new injuries. Review of Systems: Negative except as per history. Past Medical History: Patient Active Problem List Diagnosis Code ??? Neuropathy of right sural nerve 355.8 ??? Closed right ankle fracture 824.8 Surgical History: Left ACL reconstruction Medications: Current Outpatient Prescriptions on File Prior to Visit Medication Sig Dispense Refill ??? pregabalin (LYRICA) 50 mg Capsule Take 50 mg by mouth 3 times daily. No current facility-administered medications on file prior to visit. Allergies: Asa buff (mag carb-al glyc) and Aspirin Social History: She is . 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 Smokes ~0.5ppd. Physical Examination Gen: NAD, alert, oriented Gait: Able to hesitant to weight bear RLE: No significant swelling around the foot or ankle. Right foot is slightly cooler than the left plantarly, no difference in temperature dorsally. Full ankle ROM. Tenderness to palpation over the anteromedial and posterolateral ankle. Hypersensitivity and decreased sensation in the sural, superficial peroneal, and deep peroneal nerve distribution. Normal sensation in the tibial nerve distribution. Negative Tinel's over the tarsal tunnel. Palpable DP pulse. Imagin views of the right ankle show a healed posterior malleolus fracture. Assessment/Plan: Brandi Alvarado is a 34 y.o. woman almost 6 months s/p right posterior malleolus fracture. The fracture is healed. She continues to have hypersensitivity of the right foot and ankle. She may WBAT RLE. She should not use a brace or splint. She will start aquatic therapy and return to land-based PT in 3-4 weeks. Ankle injection as planned by Dr. Christensen is fine. Iontophoresis is OK. Follow-up as scheduled with Dr. Christensen and EMG. Follow- up here in 8 weeks. documented in this encounter Plan of Treatment Scheduled Referrals Name Type Priority Associated Diagnoses Order S chedule Referral to Outpatient Referral Routine Closed right ankle Or dered: Physical Therapy fracture, sequela 2014 documented as of this encounter Results XR ankle minimum 3 views (06/18/2014 10:40 AM EDT) Anatomical Region Laterality Modality Ankle N/A Radiographic Imaging Specimen (Source) Anatomical Collection Method Collection Time Re ceived Time Location / / Volume Laterality 06/18/2014 10:40 AM EDT Impressions 06/18/2014 11:22 AM EDT IMPRESSION: The previously seen posterior malleolar fracture is healed. Narrative 06/18/2014 11:22 AM EDT EXAMINATION: ANKLE MIN 3 VIEWS/RIGHT CLINICAL HISTORY: post mal fx TECHNIQUE: AP, oblique and lateral of th e right ankle COMPARISON: April 23, 2014, February 24 FINDINGS: No fracture or dislocation is seen. The ankle mortise is intact. The ankle appears unchanged since the prior examin ation. The posterior malleolar fracture visible in February 2014 is not seen. Procedure Note Jm Santoyo MD - 06/18/2014 EXAMINATION: ANKLE MIN 3 VIEWS/RIGHT CLINICAL HISTORY: post mal fx TECHNIQUE: AP, oblique and lateral of th e right ankle COMPARISON: April 23, 2014, February 24 FINDINGS: No fracture or dislocation is seen. The ankle mortise is intact. The ankle appears unchanged since the prior examin ation. The posterior malleolar fracture visible in February 2014 is not seen. IMPRESSION IMPRESSION: The previously seen posterior malleolar fracture is healed. Valentín Alfonso MD IMG DX ORDERABLES documented in this encounter Visit Diagnoses Diagnosis Closed right ankle fracture, sequela Closed right ankle fracture, sequela documented in this encounter Care Teams Early Intervention Specialist Relationship Specialty Start Date End Date Lisset Suárez, CLINICAL RESEARCH DIRECTOR PCP - General 06/13/14 07/17/14 [facility] [address] [facility] [place] [address] documented as of this encounter
--- OUTSIDE RECORDS SUMMARY | 2021-12-24 12:24 | XMS_ITS | Encounter Summary ---
:1980 Author Organization [facility] [place] [address] Care Team Providers Name Role Phone Kamini Lisset Farah APRN Primary Care Provider Encounter Details Date Type Department Care Team Description 06/18/2014 Hospital Encounter XRay at [facility] Closed right ankle [address] [place] [address] [place] [address] Social History Tobacco Use Types Packs/Day [...] Sig Dispensed Refills Start Date End Date cyclobenzaprine (FLEXERIL) Take 10 mg by 0 06/02/2015 10 mg Tablet mouth 3 times daily as needed for Muscle spasms. pregabalin (LYRICA) 50 mg Take by mouth. 3 0 08/19/2014 Capsule tablets in the AM and 2 tablets in the PM documented as of this encounter Plan of Treatment Not on filedocumented as of this encounter Procedures Procedure Name Priority Date/Time Associated Diagnosis Comme nts XR ANKLE MINIMUM 3 Routine 06/18/2014 10:40 AM Closed right an kle Results for this VIEWS EDT fracture, sequela procedure are in the results section. documented in this encounter Results XR ankle minimum 3 [...] Diagnoses Diagnosis Closed right ankle fracture, sequela documented in this encounter Care Teams Mechanic/Welder Relationship Specialty Start Date End Date Lisset Suárez APRN PCP - General 06/13/14 07/17/14 [facility] [address] [place] [address] documented as of this encounter
--- OUTSIDE RECORDS SUMMARY | 2021-12-24 12:24 | XMS_ITS | Encounter Summary ---
:1980 Author Organization [facility] [place] [address] Care Team Providers Name Role Phone Lisset Suárez VIKTORIA Primary Care Provider Encounter Details Date Type Department Care Team Description 03/20/2014 [facility] Only [facility], [facility] [place] [address] [facility] [phone] PAIN CLINIC [place], [place] [address] (Wo rk) Social History Tobacco Use Types Packs/Day Years Used Date Never Assessed Sex Assigned at Date Recorded Not on file documented as of this encounter Plan of Treatment Not on filedocumented as of this encounter Procedures Procedure Name Priority Date/Time Associated Diagnosis Comme nts FILM LIBRARY Routine 03/20/2014 8:00 AM Results f or this STORAGE ONLY MR EST procedure ar e in FOOT the results section. documented in this encounter Results Film Library- Storage only MR Foot (03/20/2014 8:00 AM EST) Anatomical Region Laterality Modality Other Specimen (Source) Anatomical Collection Method Collection Time Re ceived Time Location / / Volume Laterality 03/20/2014 8:00 AM EST Narrative 06/11/2014 7:45 AM EDT This is a Non-reportable exam Procedure Note REYNA, UNSIGNED REPORT - 06/11/2014Formatt ing of this note might be different from the original. This is a Non-reportable exam Aries Christensen MD IM FILM LIBRARY ORDERABLES documented in this encounter Visit Diagnoses Not on filedocumented in this encounter Care Teams Padded Products Inspector Trimmer Relationship Specialty Start Date End Date Lisset Suárez APRN PCP - General 06/11/14 06/11/14 [facility] [address] [facility] [place] [address] documented as of this encounter
--- OUTSIDE RECORDS SUMMARY | 2021-12-24 12:24 | XMS_ITS | Encounter Summary ---
:1980 Author Organization [facility] [place] [address] Care Team Providers Name Role Phone Lisset Suárez VIKTORIA Primary Care Provider Encounter Details Date Type Department Care Team Description 06/11/2014 Office Visit [facility] Tania Childers MD sural nerve [facility] [address] [place], [place] [facility] [address] [place] [address] [phone] Social History Tobacco Use Types Packs/Day Years Used Date Current Every Day Smoker Cigarettes 0.5 16 Sex Assigned at Date Recorded Not on file documented as of this encounter Progress Notes Aries Christensen MD - 06/24/2014 12:05 PM EDT I am seeing Ms. Alvarado at [...] than five years. 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 She has no prior history of alcoholism. [...] care is being managed by her occupational therapy professor and I would recommend that she increase [...] she would do much better with a color strainer and a gym membership and I have talked to her about weightlifting and other activities that would be useful for her. We will leave it up to her color strainer to be more specific with that and [...] nerve documented in this encounter Care Teams Clinical Rn Relationship Specialty Start Date End Date Lisset Suárez APRN PCP - General 06/11/14 06/11/14 [facility] [address] [place] [address] documented as of this encounter
== END 2021-12-24 12:18 | disposition home or self-care (01) ==
LOC: LBO 12:21
PROVIDERS: Visit Provider Registered Nurse
DX: Z51.81 Encounter for therapeutic drug level monitoring (principal); Z79.899 Other long term (current) drug therapy
CPT/HCPCS: 36415; 80053; 80178

== ENCOUNTER 2022-06-10 15:46 | Outpatient (REF) | payer MEDICAID, SELFPAY ==
[2022-06-10 18:14] LABS: Lithium 0.9 mmol/l (0.6-1.2)
[2022-06-10 18:23] LABS: TSH (W/Ref FT4) 2.72 uIU/mL (0.36-3.74)
== END 2022-06-10 15:47 | disposition home or self-care (01) ==
LOC: NCHCN 15:46
PROVIDERS: PCP Nurse Practitioner Family; Visit Provider Registered Nurse
DX: F31.10 Bipolar disorder, current episode manic without psychotic features, unspecified (principal); F90.9 Attention-deficit hyperactivity disorder, unspecified type; Z51.81 Encounter for therapeutic drug level monitoring; Z79.899 Other long term (current) drug therapy
CPT/HCPCS: 80178; 84443

== ENCOUNTER 2022-06-15 06:14 | Day surgery (SDC) | payer MEDICAID, SELFPAY ==
--- NOTE | 2022-06-14 16:27 | W.ANESPRE ---
General Info Date of Service Date Performed: 06/15/22 Height: 5 ft 6 in Weight: 73.482 kg Body Mass Index (BMI): 26.1 Surgical Procedure: Operation Date: 06/15/22 07:40 Proposed Procedure Side Surgeon p Excision Lipoma Forearm Right Jalyn Back MD Meds Allergies and Home Medications Allergies Allergy/AdvReac Type Severity Reaction Status Date / Time aspirin Allergy Severe Anaphylaxsi Unverified 06/15/22 06:33 s Home Medication Medication Instructions Recorded ibuprofen 600 mg tablet 600 mg PO QID PRN PRN Pain #30 tabs 01/28/14 lisdexamfetamine 20 mg capsule 20 mg PO DAILY 03/17/22 (Vyvanse) lithium carbonate 300 mg capsule 900 mg PO QHS 03/17/22 olanzapine 5 mg tablet 5 mg PO BID 03/17/22 Current Visit Medications: Current Medications Generic Name Dose Route Start Last Admin Trade Name Freq PRN Reason Stop Dose Admin Ringer's Solution 1,000 mls @ 80 mls/hr 06/15/22 06:00 IV 07/14/22 23:59 INFUSION LEE ANN IV Miscellaneous Supplies 1 each 06/15/22 06:00 Iv Access IV 07/14/22 23:59 DIRECTED LEE ANN Sodium Chloride 0 ml 06/15/22 06:00 Normal Saline Flush 10 Ml Syr IV 07/14/22 23:59 PRN PRN Sodium Chloride 0 ml 06/15/22 06:00 Normal Saline 10 Ml Vial IJ 07/14/22 23:59 DIRECTED PRN Sterile Water 0 ml 06/15/22 06:00 Water,Injection,Sterile 10 Ml Vial IJ 07/14/22 23:59 DIRECTED PRN PFSH Active Problems Active Problems: Problem Status Onset Code Lipoma of arm D17.20 Other halfway (current) drug therapy Z79.899 PTSD (post-traumatic stress disorder) F43.10 ADHD F90.9 Anxiety F41.9 Bipolar 1 disorder F31.9 Subcutaneous mass of right upper extremity R22.31 Medical History Medical History (Updated 06/15/22 @ 06:35 by Nayla Burnett) Foot pain, right s/p Fx R lateral malleolus. 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 LFTs and viral RNA pending. 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 states she has not used any recreational drug in 6 months (cocaine) Vital Signs and Lab Results Vital Signs Most Recent Vital Signs in EMR: Temp Pulse Resp BP Pulse Ox 36.7 C 79 18 102/75 96 06/15/22 06:36 06/15/22 06:36 06/15/22 06:36 06/15/22 06:36 06/15/22 06:36 Lab Results Blood Type / Crossmatch: No Data to Display Complete Blood Count: No Data to Display Complete Metabolic Panel: No Data to Display Liver Function Panel: No Data to Display Coagulation Panel: No Data to Display Cardiac Panel: No Data to Display Arterial Blood Gas: No Data to Display Venous Blood Gas: No Data to Display Pancreas Panel: No Data to Display Thyroid Panel: Thyroid Stimulating Hormone (TSH) 2.72 uIU/mL (0.36-3.74) 06/10/22 10:15 Infectious Disease: No Data to Display Blood Cultures: No Data to Display Toxicology Panel: No Data to Display Panel: No Data to Display Anesthesia Assessment and Plan Anesthesia History Personal History: No History of Anesthesia Complications Family History: Family History Unknown Exercise Tolerance Exercise Tolerance: Metabolic Equivalents>4 Cardiac & Pulmonary Exam Cardiac Exam: Normal S1/S2 Heart Sounds Pulmonary Exam: Clear Bilateral Breath Sounds Implantable Cardiac Device Does patient have a Pacemaker or an ICD?: No Airway Exam Known Difficult Airway: No Mallampati Class: 3 Mouth Opening: Narrow (< 3cm) Thyromental Distance: Greater than 3 cm Neck Range of Motion: Full ROM Neck Circumference: Normal Teeth Condition: Normal Dentition Airway Comments: denies TMJ, on mouth opening jaw displaces to the left ASA Classification ASA Score: ASA 2 Emergency Case?: No NPO Status NPO Status: NPO Clears >2 hours, Solids >8 hours Status Status: Negative HCG Anesthesia Plan Resuscitation Status: Full Code Anesthesia Technique: MAC Anesthesia Airway Planned: Natural Airway Monitors Used: Standard Monitors Preoperative Comments:: 42 yo female for removal of forarm lipoma. Sig PMHx: anxiety/bipolar/PTSD (lithium,olanzapine, vyvanse) , daily smoker, former substance abuse. Would like sedation prior to OR, did not take her vyvanse and feels her anxiety building.
--- NOTE | 2022-06-15 06:29 | W.PM.PROGNOT ---
Date of Service Date of service: 06/15/22 Time of Service: 07:02 Assessment and Plan Assessment and plan (1) Lipoma of arm: Status: Acute Assessment and plan: Mrs Alvarado was seen pre-operatively. We again discussed the risks, benefits and complications of the procedure which includes but is not limited to bleeding, seroma, hematoma and recurrence. Small chance of infection. Patient asked appropriate questions which were answered to her satisfaction. She understood the risks and benefits and wanted to proceed. Subjective Subjective Interval history since last seen: Brandi is doing well. She is here today to have the small lipoma removed on her right forearm. She asked me if I would send the mass for testing. I explained that I usually do if I have any concerns but if it is benign appearing I woont. I gave her the choice of sending it no matter what but she is OK with me making the decision. Exam Const General: cooperative, comfortable and no acute distress Orientation: alert and oriented x3 HENMT Head: normocephalic and atraumatic Resp Effort & Inspection: normal respiratory effort Extrem Other: Right forearm- small 2 cm lipoma. No change since I saw her in the office Time Spent with Patient Time Spent with Patient: <25 minutes Time was spent: counseling the patient
--- NOTE | 2022-06-15 06:30 | W.PM.OP ---
Date of service: 06/15/22 Time of Service: 07:48 Operative Note Operative Note DATE OF PROCEDURE: 06/15/22 PRE-OP DIAGNOSIS: lipoma of arm POST-OP DIAGNOSIS: same PROCEDURE: excision of lipoma SURGEON: Jalyn Back Refer to Anesthesia Record ESTIMATED BLOOD LOSS: 3 PATHOLOGY: none sent COMPLICATIONS: None Patient was transported to: same day Patient's condition: stable Indications: Brandi is a 42 year old female with a small 2 cm lipoma on her right forearm. I discussed removal in the office under local only. Patient expressed that she would most likely pass out and vomit. She is very anxious and is requesting to be placed under sedation for the excision.? Risks, benefits and complications of excision of the lipoma were reviewed. Complications include but are not limited to bleeding, pain, infection, recurrence, wound dehisence, injury to muscle, ligaments, tendons or nerves and adverse reaction to the medications.? Questions were entertained and answered to her satisfaction and she wished to proceed. NO guarantees were given or implied. Findings: small 2 x 2.5 cm lipoma Procedure Description: After informed consent was obtained the patient was placed in a supine position. The skin was then prepped and draped in a sterile surgical fashion. 1% Lidocaine was injected into the dermis and subcutaneous tissue. An incision was made over the palpable lesion with a 15 blade. Dissection was done around the lesion using both blunt dissection with a hemostat and sharp dissection with curved iris scissors. Once the lipoma was completely dissected it was removed from the operating field. The wound was irrigated with some saline. Once the wound was clean and dry the dermis was closed with a running 4-0 Vicryl suture. Skin was cleaned and dried and dermabond was applied. The patient tolerated the procedure well and there were no immediate complications. Needle counts were correct at the end of the case.
--- NOTE | 2022-06-15 06:33 | W.PM.DSUDISC ---
Date of service: 06/15/22 Time of Service: 08:10 Discharge Plan Disposition Patient Disposition: Home Condition: Stable Discharge Details Reason For Visit: lipoma of arm Attending Provider: Jalyn Back Primary Care Provider: MIKE PA Home Meds and New Rx's Prescriptions: Continued lithium carbonate 300 mg capsule 900 mg PO QHS Vyvanse 20 mg capsule 20 mg PO DAILY olanzapine 5 mg tablet 5 mg PO BID ibuprofen 600 MG tablet 600 mg PO QID PRN PRN (Reason: Pain) Qty: 30 0RF Discharge Instructions Instructions: Care For Your Absorbable Stitches (DC) Additional Instructions: Activity at Home after surgery: 1.As tolerated Diet, Nutrition, & wound healin. Avoid alcohol until after you are recovered from your surgery 2. Make sure to eat plenty of lean protein (meat, fish, eggs, cottage cheese, beans) 3. Eat a variety of fruits and vegetables. Eat plenty of high fiber foods to avoid constipation. 4. Drink plenty of liquids to stay hydrated and avoid constipation Pain Medications: 1. Tylenol 650mg every 6 hours as needed and Ibuprofen 600 mg every 6 hours as needed. You may alternate between the 2 medications every 3 hours Other: 1. You may shower daily. Do not scrub the incisions 2. Do not soak the incisions for 1 week 3. You may alternate ice and heat as needed for pain and swelling Wound Care: 1. Keep the incisions clean and dry Please call our office if you develop: 1. Fevers >101.5 2. Nausea or Vomiting 3. Worsening pain 4. Redness and thick discharge from the wounds If after hours please call the Hospital at and ask to speak to the on-call surgeon Stand Alone Forms: Anesthesia Discharge InstJorge, Kyaw Thomas (DSU) Activity:: Activity as Tolerated Remove Dressings/Wound Care:: Do Not Remove Shower/Bathe:: 24 hours Diet:: As Tolerated Discharge Orders Discharge Orders: Discharge Order (Routine); Ordered 06/15/22 Ordered By: Jalyn Back DS: Diagnosis Discharge Diagnosis (1) Lipoma of arm: Status: Acute
[2022-06-15 06:36] VITALS: BP 102/75; PULSE 79; RESP 18; TEMP 36.7; O2SAT 96
[2022-06-15] MEDS: Lactated Ringers 1,000 ML 80 ML IV (06:50)
[2022-06-15 06:58] VITALS: BMI 26.1
[2022-06-15] MEDS: Bupivacaine 0.25% Pres-Free 30 ML VIAL (07:47)
[2022-06-15 07:53] VITALS: BP 119/77; PULSE 68; RESP 18; TEMP 36.7; O2SAT 97
--- NOTE | 2022-06-15 08:10 | W.ANESPOSTOP ---
Postoperative Evaluation Date, Time and Location Date Performed: 06/15/22 Time Performed: 08:10 Patient Location: Day Surgery Unit Vital Signs Most Recent Imported Vital Signs: Most Recent Vital Signs Temp Pulse Resp BP Pulse Ox 36.7 C 68 18 119/77 97 06/15/22 07:53 06/15/22 07:53 06/15/22 07:53 06/15/22 07:53 06/15/22 07:53 Pain Score Most Recent Pain Score: Most Recent Pain Score Pain Level 5 06/15/22 06:36 Assessment Mental Status: Awake (Alert & Oriented to Patient Baseline) Airway and Respiratory Function: Patent airway with normal (patient baseline) respiratory exam Cardiovascular Function: Hemodynamically Stable Hydration Status: Adequately Hydrated Nausea & Vomiting: No Nausea or Vomiting Pain: Pt. Denies Any Pain Peripheral Nerve Block: Patient did not receive a nerve block
--- NOTE | 2022-06-15 08:13 | W.PM.PROGNOT ---
Date of Service Date of service: 06/15/22 Time of Service: 08:13 Assessment and Plan Assessment and plan (1) Lipoma of arm: Status: Acute Assessment and plan: Patient is s/p excision of Right forearm Lipoma. She is doing well. Her dressing is intact. She is not complaining of pain. Discussed surgery and postop care. May remove the dressing tomorrow morning. May shower starting tomorrow Sutures are dissolvable. Follow up in the office as needed Subjective Subjective Interval history since last seen: Patient is sleepy still but wakes up easily. She has no pain Exam Extrem Other: Right Forearm- dressing over the dermabond is c/d/i Objective Last Vital Signs Temp 98.1 F 06/15/22 07:53 Pulse 68 06/15/22 07:53 Resp 18 06/15/22 07:53 BP 119/77 06/15/22 07:53 Pulse Ox 97 06/15/22 07:53 Time Spent with Patient Time Spent with Patient: <25 minutes Time was spent: counseling the patient
[2022-06-15 08:17] VITALS: BP 101/82; PULSE 71; RESP 18; TEMP 36; O2SAT 100
== END 2022-06-15 08:58 | disposition home or self-care (01) ==
PROVIDERS: PCP Nurse Practitioner Family; Visit Provider Surgery
PROC: (CPT 11402; principal; 2022-06-15 07:30)
DX: D17.21 Benign lipomatous neoplasm of skin and subcutaneous tissue of right arm (principal); F17.210 Nicotine dependence, cigarettes, uncomplicated; F41.9 Anxiety disorder, unspecified; F31.9 Bipolar disorder, unspecified
CPT/HCPCS: 11402; 81025; J2250; J2704

== ENCOUNTER 2023-03-27 14:02 | Outpatient (REF) | payer MEDICAID, SELFPAY ==
--- NOTE | 2023-03-27 13:30 | PAPFT_PTH ---
PATIENT: Brandi Alvarado LOC: [facility] U#:[id number] AGE/SX: 43/F ROOM: RE03/27/[address]: Stephanie Watts : 1980 BED: DIS: 03/27/2023 SPEC #: [id number] RECD: 03/27/23 18:20 STATUS: TAYLOR REMir #: [id number] KAIN: 03/27/23 13:[address]: Stephaine Watts DEPT: [facility] Cytology RECD BY: Karlee Forrester ENTERED: 03/27/23 18:20 SP TYPE: PAPFT OTHR DR: MIKE PA Tissues: 1 - CX/ENDOCX FOR PAP SMEARS Procedures: PAP THIN PREP/UVM Screening HPV DNA PROBE Comments: [id number]
[2023-03-29 13:24] LABS: Chlamydia Result Negative (Negative); GC Result Negative (Negative)
== END 2023-03-27 14:03 | disposition home or self-care (01) ==
LOC: LBN 14:02
PROVIDERS: PCP Nurse Practitioner Family; Visit Provider Obstetrics & Gynecology Gynecology
DX: Z12.4 Encounter for screening for malignant neoplasm of cervix (principal); Z11.51 Encounter for screening for human papillomavirus (HPV)
CPT/HCPCS: 87491; 87591; 88142; 87624

== ENCOUNTER → 2023-04-04 02:15 | Outpatient (CLI) | payer MEDICAID, SELFPAY ==
--- NOTE | 2023-04-04 12:00 | DI.MAMMO_ITS ---
Exam(s) MAMMO SCREENING EXAM: MAMMO SCREENING CLINICAL HISTORY: screening TECHNIQUE: Bilateral full field digital CC and MLO mammographic images were obtained with 3D tomosyn thesis and utilizing computer aided detection (CAD). COMPARISON: This is a baseline examination. FINDINGS: Masses/Architectural Distortion: None seen. Microcalcifications: No suspicious pleomorphic-type are seen. Skin Thickening/Nipple Retraction: None. IMPRESSION: 1. No significant interval change with no specific features of malignancy noted. 2. Unless there is more urgent need, screening mammography is recommended, as per [employer] guidelines. BI-RADS Category 1 - Negative Breast Density - Category C - Heterogeneously dense Breast density category C or D implies that the patient has dense breast tissue. Dense breast tissue is very common and is not abnormal but dense breast tissue can make it harder to find cancer on a ma mmogram. Also, dense breast tissue may increase their breast cancer risk. This information about the result of the mammogram report was provided to the patient to raise their awareness. Use this report when you speak with the patient about their risks for breast cancer, which includes their family hist ory. At that time, you may recommend for more screening tests (Ultrasound or MRI) as they might be us eful based on their risk. A negative radiographic report should not delay biopsy if a dominant or clinically suspicious mass is present. Up to ten percent of cancers are not identified on mammography. A negative report may reinforce clinical impression. Adenosis and dense breasts may obscure an underlying neoplasm. False positive reports average 6 to 10%. Patient will receive a letter notifying them of these results.
== END ==
PROVIDERS: PCP Nurse Practitioner Family; Visit Provider Obstetrics & Gynecology Gynecology
DX: Z12.31 Encounter for screening mammogram for malignant neoplasm of breast (principal)
CPT/HCPCS: 77063; 77067

== ENCOUNTER 2023-04-04 03:40 | Outpatient (CLI) | payer MEDICAID, SELFPAY ==
[2023-04-04 16:13] LABS: ALT 19 U/L (14-59); AST 12 U/L (15-37); Albumin 4.1 g/dL (3.4-5.0); Alkaline Phosphatase 88 U/L (46-116); Anion Gap 12.3 mmol/L (3-11); BUN 11 mg/dL (7-18); Bilirubin, Total 1.2 mg/dL (0.2-1.0); CO2 25.7 mmol/L (21.0-32.0); CREATININE 0.8 mg/dL (0.55-1.02); Calcium 9.7 mg/dL (8.5-10.1); Chloride 105 mmol/L (98-107); Glucose 113 mg/dL (74-106); Potassium 3.8 mmol/L (3.5-5.1); Sodium 143 mmol/L (136-145); Total Protein 7.2 g/dL (6.4-8.2)
[2023-04-04 20:40] LABS: HBs Antibody, Qual Positive (See Note); HBs Antibody, Quant >1000.0 mIU/mL (See Note); Hepatitis B Core Antibody Negative (Negative); Hepatitis B surface Ag Negative (Negative); Hepatitis C Ab w Rflx HCV PCR Reactive (Negative)
[2023-04-05 13:33] LABS: HCV RNA Qualitative Undetected (Undetected)
[2023-04-05 20:41] LABS: Syphilis IgG w/Reflex Nonreactive (Nonreactive)
== END 2023-04-04 03:41 | disposition home or self-care (01) ==
LOC: LBO 03:40
PROVIDERS: PCP Nurse Practitioner Family; Visit Provider Obstetrics & Gynecology Gynecology
DX: F19.91 Other psychoactive substance use, unspecified, in remission (principal)
CPT/HCPCS: 36415; 80053; 86704; 86706; 86803; 87340; 87522; 86780

== ENCOUNTER 2023-08-28 03:18 | Outpatient (CLI) | payer MEDICAID, SELFPAY ==
[2023-08-28 12:55] LABS: TSH 1.87 uIU/Ml (0.36-3.74)
[2023-08-28 13:13] LABS: Hemoglobin A1C 5.1 % (<5.7)
[2023-08-28 13:23] LABS: Lithium 0.9 mmol/L (0.6-1.2)
== END 2023-08-28 03:19 | disposition home or self-care (01) ==
LOC: LBO 03:18
PROVIDERS: Visit Provider Registered Nurse
DX: Z51.81 Encounter for therapeutic drug level monitoring (principal)
CPT/HCPCS: 36415; 80178; 83036; 84443

== ENCOUNTER 2024-05-02 15:10 | Outpatient (REF) | payer MEDICAID, SELFPAY ==
[2024-05-03 11:02] LABS: Chlamydia Result Negative (Negative); GC Result Negative (Negative)
== END 2024-05-02 15:11 | disposition home or self-care (01) ==
LOC: LBN 15:10
PROVIDERS: Visit Provider Obstetrics & Gynecology
DX: Z01.419 Encounter for gynecological examination (general) (routine) without abnormal findings (principal); N89.8 Other specified noninflammatory disorders of vagina
CPT/HCPCS: 87491; 87591; 87480; 87510; 87660